=== PATIENT | female | born 1940 | race Caucasian/White ===

== ENCOUNTER 2016-08-21 07:50 | Emergency (ER) | payer MEDICARE, BC ==
[~2016-08-21] VITALS: Ht 167.6 cm; Wt 87.1 kg
[~2016-08-21 07:50] MED LIST: ASPI81CH3 PO; CALC600T34 PO; CHOL1CAP6 PO; CO Q200C3 PO; FIBE625T10 PO; GLUC500C56 PO; HYDR12.56 PO/TUBE; LIPI40TA PO; TAB-TAB PO; TELM1TAB56 PO; TOPR25TA2 PO
[2016-08-21 08:12] VITALS: RESP 16; O2SAT 100
[2016-08-21] MEDS ORDERED: SODIUM CHLORIDE 0.9% FLUSH 5 ML FLUSH IVF PRN (08:15)
[2016-08-21 08:17] VITALS: BP_SYST 172; BP_SYST 179; BP_DIAS 105; BP_DIAS 78; PULSE 63; RESP 16; O2SAT 100
[2016-08-21 08:20] VITALS: BP 172/78; PULSE 57; RESP 16; TEMP 98.1; O2SAT 99
[2016-08-21] MEDS: NITROGLYCERIN 0.4 MG SL 25 TABS/BTL SL SCH ×2 (08:20→08:24)
[2016-08-21 08:21] LABS: AUTOMATED NEUTROPHIL # 3.9 TH/MM3 (1.8-7.7); BASOPHIL # 0.1 TH/MM3 (0-0.2); BASOPHIL % 2.4 % (0.0-2.0); EOSINOPHIL % 0.7 % (0.0-4.0); HEMATOCRIT 41.7 % (35.0-46.0); HEMO FLAGS DIFF FINAL; LYMPH % 24.7 % (9.0-44.0); LYMPHOCYTE # 1.4 TH/MM3 (1.0-4.8); MEAN CELL VOLUME 88.8 FL (80.0-100.0); MEAN CORPUSCULAR HEMOGLOBIN 29.9 PG (27.0-34.0); MEAN CORPUSCULAR HGB CONC 33.6 % (32.0-36.0); MONO % 7.4 % (0.0-8.0); NEUT % 64.8 % (16.0-70.0); PLATELET COUNT 250 TH/MM3 (150-450); RED CELL DISTRIBUTION WIDTH 12.7 % (11.6-17.2); WHITE BLOOD COUNT 5.8 TH/MM3 (4.0-11.0)
[2016-08-21 08:23] LABS: CHLORIDE 100 MEQ/L (98-107); POTASSIUM 3.8 MEQ/L (3.5-5.1); SODIUM (NA) 136 MEQ/L (136-145)
[2016-08-21 08:26] LABS: ANION GAP 9 MEQ/L (5-15); BICARBONATE 26.8 MEQ/L (21.0-32.0)
[2016-08-21 08:27] LABS: BLOOD UREA NITROGEN 10 MG/DL (7-18)
[2016-08-21 08:29] LABS: ALT (GPT) 19 U/L (10-53); APTT (PATIENT) 22.9 SEC (24.3-30.1); INTERNATIONAL NORMALIZED RATIO 0.9 RATIO; PROTHROMBIN TIME - PATIENT 10.4 SEC (9.8-11.6)
[2016-08-21 08:30] LABS: AST (GOT) 16 U/L (15-37); GLOMERULAR FILTRATION RATE 58 ML/MIN (>89)
[2016-08-21 08:31] LABS: TOTAL BILIRUBIN ADULT 0.6 MG/DL (0.2-1.0)
[2016-08-21 08:32] LABS: ALKALINE PHOSPHATASE 104 U/L (45-117)
[2016-08-21] MEDS ORDERED: GLUC1CAP16 PO (08:32)
[2016-08-21] MEDS ORDERED: MULTTAB67 PO (08:32)
[2016-08-21] MEDS ORDERED: ATOR40TA16 PO (08:32)
[2016-08-21] MEDS ORDERED: VITA10003 PO (08:32)
[2016-08-21] MEDS ORDERED: TOPR25TA PO (08:32)
[2016-08-21] MEDS ORDERED: LACTCAP8 PO (08:32)
[2016-08-21] MEDS ORDERED: CALCTAB54 PO (08:32)
[2016-08-21] MEDS ORDERED: MICA80TA2 PO (08:32)
[2016-08-21] MEDS ORDERED: COQ130CA PO (08:32)
[2016-08-21] MEDS ORDERED: ASPI81CH37 CHEW (08:32)
[2016-08-21] MEDS ORDERED: FIBE625T10 PO (08:32)
[2016-08-21] MEDS ORDERED: PREV15CA15 PO (08:32)
--- NOTE | 2016-08-21 08:33 | PD ---
HPI Chief Complaint: Chest Pain Time Seen by Provider: 07:56 Travel History International Travel<30 days: No Contact w/Intl Traveler<30days: No Traveled to known affect area: No History of Present Illness HPI This is a 76-year-old female who presents to the emergency department with chest discomfort described as someone pressing her thumb directly on her breastbone that started last evening and has persisted throughout the night, intermittent, moderate severity associated with shortness of breath. She says this feels very similar to when she had a heart attack back in [address] Palomo placed stent. The associated nausea or diaphoresis. She did take a baby aspirin as well as a Yuriy extra strength aspirin this morning because her arthritis was bothering her. She thinks her last stress test was 3 years ago. PFSH Past Medical History Hx Anticoagulant Therapy: Yes (BABY ASA BID) Arthritis: Yes (OSTEOARTHRITIS) Asthma: No Autoimmune Disease: No Heart Rhythm Problems: Yes (WAS PLACED ON TOPRAL AND RESOLVED) Cancer: No Cardiac Catheterization: Yes (1989 AND 2012 (STENT PLACED)) Cardiovascular Problems: Yes (A. FIB, STENTS, [place], [place]) High Cholesterol: Yes Chest Pain: Yes Congestive Heart Failure: No COPD: No Diabetes: No Diminished Hearing: No Endocrine: No Gastrointestinal Disorders: Yes (acid reflux) GERD: Yes Glaucoma: No Genitourinary: No Hepatitis: No Hiatal Hernia: No Hypertension: Yes Immune Disorder: No Kidney Stones: No Medical other: Yes (GERD/REFLUX, ARTHRITIS) Musculoskeletal: Yes Neurologic: No Psychiatric: No Reproductive: No Respiratory: No Immunizations Current: Yes Myocardial Infarction: Yes Renal Failure: No Sleep Apnea: No Thyroid Disease: No Ulcer: No Tetanus Vaccination: Unknown ?: Not Menopausal: No : 3 Para: 3 Past Surgical History Abdominal Surgery: No AICD: No Arteriovenous Shunt: No Cardiac Surgery: Yes (cardiac stent) Ear Surgery: No Endocrine Surgery: No Eye Surgery: No Genitourinary Surgery: No Gynecologic Surgery: No Insulin Pump: No Joint Replacement: No Neurologic Surgery: No Oral Surgery: Yes (TONSILECTOMY) Pacemaker: No Thoracic Surgery: No Tonsillectomy: Yes Other Surgery: Yes (TONSILLECTOMY, BILATERAL ARTHOSCOPIC SURGERY) Social History Alcohol Use: Yes ("RARE",wine) Tobacco Use: No Substance Use: No Allergies-Medications (Allergen,Severity, Reaction): Coded Allergies: Penicillin (Verified Allergy, Intermediate, hives, 08/21/16) swelling and shortness of breath Reported Meds & Prescriptions Reported Meds & Active Scripts Active Reported Fiber Tabs (Calcium Polycarbophil) 625 Mg Tab 625 Mg PO PRN Calcium 500 (Ytxcwmu-Csjfyadss-Zlbhgue D) 500-250-200 Mg-Mg-Unit Tab 1 Tab PO Vitamin D-3 (Cholecalciferol) 1,000 Unit Tab 1,000 Units PO DAILY Coq10 (Coenzyme Q10 (Ubidecarenone)) 30 Mg Cap 1 Tab PO DAILY Glucosamine Chondroitin (Wbmhkiakjce-Yygzxldvrxr-Ddm C-) 1 Cap Cap 1 Tab PO BID Multiple Vitamin 1 Tab 1 Tab PO DAILY Probiotic (Lactobacillus Acidophilus) 1 Cap Cap 1 Cap PO DAILY Prevacid (Lansoprazole) 15 Mg Capdr 15 Mg PO DAILY Toprol XL (Metoprolol Succinate) 25 Mg Tab 25 Mg PO DAILY Atorvastatin (Atorvastatin Calcium) 40 Mg Tab 40 Mg PO HS Micardis Hct (Telmisartan-Hydrochlorothiazide) 80-12.5 Mg Tab 1 Tab PO DAILY Aspirin Low Dose (Aspirin) 81 Mg Chew 81 Mg CHEW DAILY Review of Systems Except as stated in HPI: all other systems reviewed are Neg Physical Exam Narrative GENERAL:Well appearing, no acute distress SKIN: Warm and dry. HEAD: Atraumatic. Normocephalic. EYES: Pupils equal and round. No injection or drainage. ENT: Moist mucous membranes NECK: Trachea midline. CARDIOVASCULAR: Regular rate and rhythm. No murmur appreciated. RESPIRATORY: Clear to auscultation. Breath sounds equal bilaterally. GASTROINTESTINAL: Abdomen soft, non-tender, nondistended. MUSCULOSKELETAL: No obvious deformities. NEUROLOGICAL: Awake and alert. No obvious cranial nerve deficits. Moving all extremities. PSYCHIATRIC: Appropriate mood and affect; insight and judgment normal. Data Data Last Documented VS Vital Signs Date Time Temp Pulse Resp B/P Pulse Ox O2 Delivery O2 Flow Rate FiO2 08/21/16 09:55 57 16 132/68 97 Nasal Cannula 2 08/21/16 08:20 98.1 Orders Electrocardiogram (08/21/16 08:05) Complete Blood Count With Diff (08/21/16 08:05) Comprehensive Metabolic Panel (08/21/16 08:05) Prothrombin Time / Inr (Pt) (08/21/16 08:05) Act Partial Throm Time (Ptt) (08/21/16 08:05) Troponin I (08/21/16 08:05) Chest, Single Ap (08/21/16 08:05) Ecg Monitoring (08/21/16 08:05) Bilateral Bp Monitoring (08/21/16 08:05) Iv Access Insert/Monitor (08/21/16 08:05) Oximetry (08/21/16 08:05) Oxygen Administration (08/21/16 08:05) Sodium Chloride 0.9% Flush (Ns Flush) (08/21/16 08:15) Nitroglycerin Sl (Nitrostat Sl) (08/21/16 08:15) Troponin I (08/21/16 10:45) Labs Laboratory Tests Test 08/21/16 08:05 White Blood Count 5.8 TH/MM3 Red Blood Count 4.70 MIL/MM3 Hemoglobin 14.0 GM/DL Hematocrit 41.7 % Mean Corpuscular Volume 88.8 FL Mean Corpuscular Hemoglobin 29.9 PG Mean Corpuscular Hemoglobin 33.6 % Concent Red Cell Distribution Width 12.7 % Platelet Count 250 TH/MM3 Mean Platelet Volume 8.7 FL Neutrophils (%) (Auto) 64.8 % Lymphocytes (%) (Auto) 24.7 % Monocytes (%) (Auto) 7.4 % Eosinophils (%) (Auto) 0.7 % Basophils (%) (Auto) 2.4 % Neutrophils # (Auto) 3.9 TH/MM3 Lymphocytes # (Auto) 1.4 TH/MM3 Monocytes # (Auto) 0.4 TH/MM3 Eosinophils # (Auto) 0.0 TH/MM3 Basophils # (Auto) 0.1 TH/MM3 CBC Comment DIFF FINAL Differential Comment Prothrombin Time 10.4 SEC Prothromb Time International 0.9 RATIO Ratio Activated Partial 22.9 SEC Thromboplast Time Sodium Level 136 MEQ/L Potassium Level 3.8 MEQ/L Chloride Level 100 MEQ/L Carbon Dioxide Level 26.8 MEQ/L Anion Gap 9 MEQ/L Blood Urea Nitrogen 10 MG/DL Creatinine 0.93 MG/DL Estimat Glomerular Filtration 58 ML/MIN Rate Random Glucose 100 MG/DL Calcium Level 9.7 MG/DL Total Bilirubin 0.6 MG/DL Aspartate Amino Transf 16 U/L (AST/SGOT) Alanine Aminotransferase 19 U/L (ALT/SGPT) Alkaline Phosphatase 104 U/L Troponin I LESS THAN 0.02 NG/ML Total Protein 7.4 GM/DL Albumin 4.0 GM/DL MDM Medical Decision Making Medical Screen Exam Complete: Yes Emergency Medical Condition: Yes Interpretation(s) Afebrile, hypertensive resolved after nitroglycerin No leukocytosis Electrolytes are reassuring Troponin is normal x2 EKG: Normal sinus rhythm with no ST changes Chest x-ray: No acute process Differential Diagnosis Acute coronary syndrome, pleural effusion, pulmonary embolism, costochondritis, radiculopathy Narrative Course This is a 76-year-old female who presents to the emergency department with chest discomfort in the setting of a history of coronary artery disease. Her last stress test was in July 2015 and was reassuring. She was placed on a monitor and an IV was established. Labs were obtained which were reassuring. EKG is nonischemic. Patient took aspirin prior to arrival. Patient was offered admission but declined. 2 sets of troponin were negative. I think the patient is safe urgent follow-up with Dr. Palomo that she does require stress test and cardiology consultation as soon as possible. Diagnosis Primary Impression: Chest pain Qualified Code: R07.9 - Chest pain, unspecified type Patient Instructions: General Instructions Additional Instructions: If you develop severe chest pain, shortness of breath, sweating, lightheadedness , dizziness or difficulty breathing return to the emergency department immediately. Followup with your hematology technologist without fail as soon as possible. Med/Other Pt SpecificInfo: No Change to Meds Disposition: 01 DISCHARGE HOME Condition: Stable Marge Dodson MD Aug 21, 2016 08:33
--- NOTE | 2016-08-21 08:40 | RADHPO ---
EXAM DATE/TIME: 08/21/2016 08:30 [facility] COMPARISON: CHEST SINGLE AP, August 22, 2015, 18:36. INDICATIONS : Chest pressure. MEDICAL HISTORY : Cardiovascular disease. SURGICAL HISTORY : Coronary artery stent. ENCOUNTER: Initial ACUITY: 2 days PAIN SCORE: 0/10 LOCATION: Bilateral chest FINDINGS: A single view of the chest demonstrates the lungs to be symmetrically aerated without evidence of mas s, infiltrate or effusion. The cardiomediastinal contours are unremarkable. Osseous structures are intact. CONCLUSION: No acute disease. Linden Romo MD on August 21, 2016 at 8:39 Board Certified Radiologist. This report was verified electronically.
[2016-08-21 09:55] VITALS: BP 132/68; PULSE 57; RESP 16; O2SAT 97
[2016-08-21 11:55] VITALS: BP 161/71; PULSE 60; RESP 16; O2SAT 100
[2016-08-21 13:18] VITALS: BP 160/72
--- NOTE | 2016-08-28 14:50 | EKG ---
Date Performed: 08/21/2016 Time Performed: 08:00:00 PTAGE: 76 years EKG: Sinus bradycardia. Low QRS voltages in limb leads Compared to prior tracing no significant change Borderline ECG PREVIOUS TRACING : 08/23/2015 00.36 DOCTOR: Chalino Palomares Interpretating Date/Time 08/28/2016 14:48:09
== END 2016-08-21 13:19 | disposition home or self-care (01) ==
LOC: PHED 07:50
DX: R07.89 Other chest pain (principal); R06.02 Shortness of breath; I25.2 Old myocardial infarction; I10 Essential (primary) hypertension; K21.9 Gastro-esophageal reflux disease without esophagitis
CPT/HCPCS: 71010; 80053; 84484; 85025; 85610; 85730; 93005

== ENCOUNTER 2016-10-11 12:46 | Observation (INO) | payer MEDICARE, BC ==
[2016-10-11] VITALS (8 sets, daily range): BP systolic 154–187; BP diastolic 71–90; PULSE 56–74; RESP 16–20; TEMP 97.3–98.1; O2SAT 96–99
[~2016-10-11] VITALS: Ht 167.6 cm; Wt 82.3 kg
[~2016-10-11 12:46] MED LIST changes: -ASPI81CH3 PO; +ASPI81CH37 CHEW; +ATOR40TA16 PO; -CALC600T34 PO; +CALCTAB54 PO; -CHOL1CAP6 PO; -CO Q200C3 PO; +COQ130CA PO; +GLUC1CAP16 PO; -GLUC500C56 PO; -HYDR12.56 PO/TUBE; +LACTCAP8 PO; -LIPI40TA PO; +MICA80TA2 PO; +MULTTAB67 PO; +PREV15CA15 PO; -TAB-TAB PO; -TELM1TAB56 PO; +TOPR25TA PO; -TOPR25TA2 PO; +VITA10003 PO
[2016-10-11] MEDS ORDERED: SODIUM CHLORIDE 0.9% FLUSH 10 ML FLUSH IVF PRN (13:15)
[2016-10-11 13:31] LABS: AUTOMATED NEUTROPHIL # 4.1 TH/MM3 (1.8-7.7); BASOPHIL # 0.1 TH/MM3 (0-0.2); BASOPHIL % 1.6 % (0.0-2.0); EOSINOPHIL % 0.6 % (0.0-4.0); HEMATOCRIT 41.9 % (35.0-46.0); HEMO FLAGS DIFF FINAL; LYMPH % 19.7 % (9.0-44.0); LYMPHOCYTE # 1.1 TH/MM3 (1.0-4.8); MEAN CELL VOLUME 88.1 FL (80.0-100.0); MEAN CORPUSCULAR HEMOGLOBIN 29.4 PG (27.0-34.0); MEAN CORPUSCULAR HGB CONC 33.3 % (32.0-36.0); MONO % 6.2 % (0.0-8.0); NEUT % 71.9 % (16.0-70.0); PLATELET COUNT 256 TH/MM3 (150-450); RED BLOOD COUNT 4.76 MIL/MM3 (4.00-5.30); RED CELL DISTRIBUTION WIDTH 12.9 % (11.6-17.2); WHITE BLOOD COUNT 5.7 TH/MM3 (4.0-11.0)
[2016-10-11 13:40] LABS: CHLORIDE 100 MEQ/L (98-107); POTASSIUM 3.3 MEQ/L (3.5-5.1); SODIUM (NA) 137 MEQ/L (136-145)
--- NOTE | 2016-10-11 13:41 | RADHPO ---
EXAM DATE/TIME: 10/11/2016 13:09 [facility] COMPARISON: CHEST SINGLE AP, August 21, 2016, 8:30. INDICATIONS : Heart palpatations & hypertension. MEDICAL HISTORY : Hypercholesterolemia. Myocardial infarction. Hypertension. GERD. Osteoarthritis. SURGICAL HISTORY : Tonsillectomy. Cardiac cath with stent placement. Bilateral arthroscopic knee surgeries. ENCOUNTER: Initial ACUITY: 4 - 6 days PAIN SCORE: 0/10 LOCATION: chest FINDINGS: A single view of the chest demonstrates the lungs to be symmetrically aerated without evidence of mas s, infiltrate or effusion. The cardiomediastinal contours are unremarkable. Osseous structures are intact. CONCLUSION: No acute disease. Venkat Templeton MD FACR on October 11, 2016 at 13:39 Board Certified Radiologist. This report was verified electronically.
[2016-10-11 13:43] LABS: ANION GAP 13 MEQ/L (5-15); BICARBONATE 23.8 MEQ/L (21.0-32.0); BLOOD UREA NITROGEN 10 MG/DL (7-18); MAGNESIUM 2.1 MG/DL (1.5-2.5)
[2016-10-11 13:44] LABS: APTT (PATIENT) 24.3 SEC (24.3-30.1); PROTHROMBIN TIME - PATIENT 10.5 SEC (9.8-11.6)
[2016-10-11 13:47] LABS: GLOMERULAR FILTRATION RATE 57 ML/MIN (>89)
[2016-10-11 13:57] LABS: CREATINE KINASE 76 U/L (26-192)
--- NOTE | 2016-10-11 14:03 | PD ---
HPI Chief Complaint: Chest Pain Time Seen by Provider: 13:05 Travel History International Travel<30 days: No Contact w/Intl Traveler<30days: No Traveled to known affect area: No History of Present Illness HPI 76-year-old female came to the emergency room with history of chest discomfort and palpitation for past 3-4 days. Patient says the symptoms have been waxing and waning. She has also been keeping a diary of her blood pressure and it has been running high in the 160s to 180s. Today the pain was radiating to her jaw and that concerned her and she decided to come in and be checked. No history of shortness of breath or diaphoresis. No history of syncopal episode. Pain is in the middle of the chest radiating to her left side into the jaws. Patient was hypertensive in triage. PFSH Past Medical History Narrative Medical List of her past medical, surgical, social and family history was reviewed from the nursing note. Hx Anticoagulant Therapy: No Arthritis: Yes (OSTEOARTHRITIS) Asthma: No Autoimmune Disease: No Heart Rhythm Problems: Yes (WAS PLACED ON TOPRAL AND RESOLVED) Cancer: No Cardiac Catheterization: Yes (1989 AND 2012 (STENT PLACED)) Cardiovascular Problems: Yes (STENT PLACED) High Cholesterol: Yes Chemotherapy: No Chest Pain: Yes Congestive Heart Failure: No COPD: No Cerebrovascular Accident: Yes Diabetes: No Diminished Hearing: No Endocrine: No Gastrointestinal Disorders: Yes (acid reflux) GERD: Yes Glaucoma: No Genitourinary: No Hepatitis: No Hiatal Hernia: No Hypertension: Yes Immune Disorder: No Kidney Stones: No Medical other: Yes (GERD/REFLUX, ARTHRITIS) Musculoskeletal: Yes Neurologic: No Psychiatric: No Reproductive: No Respiratory: No Immunizations Current: Yes Myocardial Infarction: Yes Renal Failure: No Sleep Apnea: No Thyroid Disease: No Ulcer: No Tetanus Vaccination: Unknown Influenza Vaccination: Yes Menopausal: No : 3 Para: 3 Past Surgical History Abdominal Surgery: No AICD: No Arteriovenous Shunt: No Cardiac Surgery: Yes (cardiac stent) Ear Surgery: No Endocrine Surgery: No Eye Surgery: No Genitourinary Surgery: No Gynecologic Surgery: No Hysterectomy: No Insulin Pump: No Joint Replacement: No Neurologic Surgery: No Oral Surgery: Yes (TONSILECTOMY) Pacemaker: No Thoracic Surgery: No Tonsillectomy: Yes Other Surgery: Yes (TONSILLECTOMY, BILATERAL ARTHOSCOPIC SURGERY) Social History Alcohol Use: Yes ("RARE",wine) Tobacco Use: No Substance Use: No Allergies-Medications (Allergen,Severity, Reaction): Coded Allergies: Penicillin (Verified Allergy, Intermediate, hives, 10/11/16) swelling and shortness of breath Comments List of her allergies reviewed from the nursing note Reported Meds & Prescriptions Reported Meds & Active Scripts Active Reported Fiber Tabs (Calcium Polycarbophil) 625 Mg Tab 625 Mg PO BID PRN Calcium 500 (Hitbkac-Whlexrpwp-Bzbhnju D) 500-250-200 Mg-Mg-Unit Tab 1 Tab PO DAILY NEB Vitamin D-3 (Cholecalciferol) 1,000 Unit Tab 1,000 Units PO DAILY Coq10 (Coenzyme Q10 (Ubidecarenone)) 30 Mg Cap 1 Tab PO DAILY Glucosamine Chondroitin (Nazkfxthute-Ojkhubiuplh-Bqb C-) 1 Cap Cap 1 Tab PO BID Multiple Vitamin 1 Tab 1 Tab PO DAILY Probiotic (Lactobacillus Acidophilus) 1 Cap Cap 1 Cap PO DAILY Prevacid (Lansoprazole) 15 Mg Capdr 15 Mg PO DAILY Atorvastatin (Atorvastatin Calcium) 40 Mg Tab 40 Mg PO HS Micardis Hct (Telmisartan-Hydrochlorothiazide) 80-12.5 Mg Tab 1 Tab PO DAILY Aspirin Low Dose (Aspirin) 81 Mg Chew 81 Mg CHEW BID Narrative Medication List of home medications reviewed from the nursing note Review of Systems Except as stated in HPI: all other systems reviewed are Neg Physical Exam Narrative GENERAL: Awake, alert, elderly, mild distress SKIN: Focused skin assessment warm/dry. HEAD: Atraumatic. Normocephalic. EYES: Pupils equal and round. No scleral icterus. No injection or drainage. ENT: No nasal bleeding or discharge. Mucous membranes pink and moist. NECK: Trachea midline. No JVD. CARDIOVASCULAR: Regular rate and rhythm. No murmur appreciated. RESPIRATORY: No accessory muscle use. Clear to auscultation. Breath sounds equal bilaterally. GASTROINTESTINAL: Abdomen soft, non-tender, nondistended. Hepatic and splenic margins not palpable. MUSCULOSKELETAL: No obvious deformities. No clubbing. No cyanosis. No edema. NEUROLOGICAL: Awake and alert. No obvious cranial nerve deficits. Motor grossly within normal limits. Normal speech. PSYCHIATRIC: Appropriate mood and affect; insight and judgment normal. Data Data Last Documented VS Orders Electrocardiogram (10/11/16 13:05) Basic Metabolic Panel (Bmp) (10/11/16 13:05) Ckmb (Isoenzyme) Profile (10/11/16 13:05) Complete Blood Count With Diff (10/11/16 13:05) Magnesium (Mg) (10/11/16 13:05) Prothrombin Time / Inr (Pt) (10/11/16 13:05) Act Partial Throm Time (Ptt) (10/11/16 13:05) Troponin I (10/11/16 13:05) Chest, Single Ap (10/11/16 13:05) Ecg Monitoring (10/11/16 13:05) Bilateral Bp Monitoring (10/11/16 13:05) Iv Access Insert/Monitor (10/11/16 13:05) Oximetry (10/11/16 13:05) Oxygen Administration (10/11/16 13:05) Sodium Chloride 0.9% Flush (Ns Flush) (10/11/16 13:15) Thyroid Stimulating Hormone (10/11/16 13:05) Potassium Chloride Eff (K-Lyte Cl Eff) (10/11/16 14:15) Vital Signs (Adult) Q4H (10/11/16 14:26) Sodium Chloride 0.9% Flush (Ns Flush) (10/11/16 14:30) Sodium Chloride 0.9% Flush (Ns Flush) (10/11/16 21:00) Naloxone Inj (Narcan Inj) (10/11/16 14:30) Aspirin Chew (Aspirin Chew) (10/11/16 21:00) Atorvastatin (Lipitor) (10/11/16 21:00) Calcium Polycarbophil (Fiber Con) (10/11/16 14:30) Lactobacillus Acidophilus (Lactinex) (10/12/16 09:00) Metoprolol Succinate Er (Toprol Xl) (10/11/16 21:00) Calcium-Vit D 250-125 Mg (Oscal-D 250-12 (10/12/16 09:00) Cholecalciferol (Vitamin D3) (10/12/16 09:00) Pantoprazole (Protonix) (10/12/16 09:00) Multivitamin (Theragran) (10/12/16 09:00) Losartan (Cozaar) (10/12/16 09:00) Potassium Chloride (Kcl) (10/11/16 21:00) Consult Cardiology (10/11/16 ) Admit Order (Ed Use Only) (10/11/16 14:37) Labs MDM Medical Decision Making Medical Screen Exam Complete: Yes Emergency Medical Condition: Yes Medical Record Reviewed: Yes Interpretation(s) Twelve-lead EKG was reviewed by me. Normal sinus rhythm, normal axis, multiple PACs, nonspecific ST-T wave changes. Heart rate of 83 bpm. Differential Diagnosis ACS, non-STEMI, electrolyte abnormality Narrative Course 2:18 p.m. blood test results of back and patient has mild hypokalemia and I have replaced that. I went back and reassessed her and she says that her palpitation feels little better. Her blood pressure is in 150s right now. However I would like to observe her for at least 24 hours and repeat the troponins. Awaiting for the hospitalist call back. Procedures EKG Prior to Arrival: Yes Diagnosis Primary Impression: Chest pain Qualified Code: R07.9 - Chest pain, unspecified type Additional Impression: Palpitation Admitting Information Admitting Physician Requests: Observation Scripts Metoprolol Tartrate 25 Mg Tab25 Mg PO BID #60 TAB Ref 0 Prov:José Miguel Nguyen MD 10/12/16 Marcellus Liu MD Oct 11, 2016 14:03 Mean Corpuscular Hemoglobin 33.3 % Concent Red Cell Distribution Width 12.9 % Platelet Count 256 TH/MM3 Mean Platelet Volume 9.2 FL Neutrophils (%) (Auto) 71.9 % Lymphocytes (%) (Auto) 19.7 % Monocytes (%) (Auto) 6.2 % Eosinophils (%) (Auto) 0.6 % Basophils (%) (Auto) 1.6 % Neutrophils # (Auto) 4.1 TH/MM3 Lymphocytes # (Auto) 1.1 TH/MM3 Monocytes # (Auto) 0.4 TH/MM3 Eosinophils # (Auto) 0.0 TH/MM3 Basophils # (Auto) 0.1 TH/MM3 CBC Comment DIFF FINAL Differential Comment Prothrombin Time 10.5 SEC Prothromb Time International 1.0 RATIO Ratio Activated Partial 24.3 SEC Thromboplast Time Sodium Level 137 MEQ/L Potassium Level 3.3 MEQ/L Chloride Level 100 MEQ/L Carbon Dioxide Level 23.8 MEQ/L Anion Gap 13 MEQ/L Blood Urea Nitrogen 10 MG/DL Creatinine 0.95 MG/DL Estimat Glomerular Filtration 57 ML/MIN Rate Random Glucose 126 MG/DL Calcium Level 9.3 MG/DL Magnesium Level 2.1 MG/DL Total Creatine Kinase 76 U/L Troponin I LESS THAN 0.02 NG/ML Thyroid Stimulating Hormone 3.230 uIU/ML 3rd Gen [facility] Medical Decision Making Medical Screen Exam Complete: Yes Emergency Medical Condition: Yes Medical Record Reviewed: Yes Interpretation(s) Twelve-lead EKG was reviewed by me. Normal sinus rhythm, normal axis, multiple PACs, nonspecific ST-T wave changes. Heart rate of 83 bpm. Differential Diagnosis ACS, non-STEMI, electrolyte abnormality Narrative Course 2:18 p.m. blood test results of back and patient has mild hypokalemia and I have replaced that. I went back and reassessed her and she says that her palpitation feels little better. Her blood pressure is in 150s right now. However I would like to observe her for at least 24 hours and repeat the troponins. Awaiting for the hospitalist call back. Procedures EKG Prior to Arrival: Yes Diagnosis Primary Impression: Chest pain Qualified Code: R07.9 - Chest pain, unspecified type Additional Impression: Palpitation Admitting Information Admitting Physician Requests: Observation Marcellus Liu MD Oct 11, 2016 14:03
[2016-10-11] MEDS ORDERED: POTASSIUM CHLORIDE 25 MEQ EFFERVESCENT TAB NG SCH (14:15)
[2016-10-11] MEDS ORDERED: SODIUM CHLORIDE 0.9% FLUSH 10 ML FLUSH IV FLUSH PRN (14:30)
[2016-10-11] MEDS ORDERED: NALOXONE HCL 0.4 MG/ML AMP IV PRN (14:30)
[2016-10-11] MEDS ORDERED: CALCIUM POLYCARBOPHIL 625 MG TAB PO PRN (14:30)
[2016-10-11] MEDS ORDERED: POTASSIUM CHLORIDE 25 MEQ EFFERVESCENT TAB PO ONE (14:45)
[2016-10-11] MEDS: ASPIRIN 81 MG CHEW TAB CHEW SCH (20:12)
[2016-10-11] MEDS: SODIUM CHLORIDE 0.9% FLUSH 10 ML FLUSH IV FLUSH SCH (20:12)
[2016-10-11] MEDS: POTASSIUM CHLORIDE 20 MEQ CONTROLLED RELEASE TAB PO SCH (20:12)
--- NOTE | 2016-10-11 20:17 | MB ---
cc: LOGAN SOLIZ MD DATE OF : 1940 DATE OF CONSULTATION: 10/11/2016 REASON FOR CONSULTATION: Palpitation, elevated blood pressure, atypical chest pain. HISTORY OF PRESENT ILLNESS 76-year-old female followed by my partner, Dr. Roman Palomo, with past medical history significant for coronary artery disease status post PCI in the setting of a non ST-elevation PA in 2014, hypertension, hyperlipidemia, GERD, who presented to the emergency department for evaluation of palpitations, and elevated blood pressure. The patient reports that for the last two days she has been having this episode of palpitations and "heart pounding," that she felt in her neck and her jaw. She also was more concerned with her blood pressure which was in the 190 systolic for which she drove herself to the emergency department for evaluation. She denies fever, chills, nausea, vomiting, diarrhea , presyncope, syncope, edema and lightheadedness. She is noncompliant with medications, chest trauma, or bleeding issues. In the emergency department EKG was unremarkable. She was found with a low potassium. Potassium was replaced and first set of cardiac enzymes are negative with a value of less than 0.02 and her blood pressure was controlled with medication. Cardiology has been consulted for further management and evaluation. She reports feeling well. She denies any chest pain, palpitations, shortness of breath. She is comfortable in her bed. REVIEW OF SYSTEMS: Negative except for what is mentioned in the HPI. PAST MEDICAL HISTORY 1. Hypertension 2. Hyperlipidemia 3. CAD status post cardiac stent 4. Gastroesophageal reflux disease ALLERGIES: PENICILLIN SOCIAL HISTORY: Rarely drinks alcohol. She denies tobacco or illicit drug use. FAMILY HISTORY: Noncontributory. CARDIAC HOME MEDICATIONS: 1. Toprol XL 25 milligrams p.o. q hs. 2. Lipitor 40 milligrams p.o. q hs. 3. Aspirin 81 milligrams p.o. daily. 4. Micardis HCT 80/12.5 mg p.o. daily PHYSICAL EXAMINATION Vital signs: Temperature 98, pulse 64, respiratory rate 16, blood pressure 187/83 on arrival and now is down to 156/71. O2 sat is 98% on room air. General: She is awake, alert, oriented x3 in no acute distress. Neck: No JVD, no carotid bruits. Heart: Regular rate and rhythm. No murmurs, rubs or gallops. Lungs: Clear to auscultation bilaterally. No wheezes, no rhonchi, no rales. Abdomen: Obese. Positive bowel sounds, soft, nontender, nondistended. Extremities: No cyanosis or edema. Pulses throughout. DATA CBC: hemoglobin 14, hematocrit 41, platelet count 256, INR 1, Chemistries: sodium 137, potassium 3.3, BUN 10, creatinine 0.95, First set of troponin less than 0.02. X-RAYS Chest x-ray, no acute cardiopulmonary process. She has a myocardial perfusion scan done on 08/23/2015 which is unremarkable. She has another MPI done 08/18/2014 which shows no definite reversible perfusion defects, low probability. EKG: sinus rhythm with PAC nonspecific ST changes. ASSESSMENT/PLAN 76-year-old female with known coronary artery disease that presents with complaints of palpitations and atypical chest discomfort. He has been found with low potassium, cardiac enzymes so far are negative. Agree with an admission to the hospital for observation. The patient should be ruled out of PA by cardiac markers. Monitor telemetry, and the blood pressure medications should be optimized while inpatient. If she remains asymptomatic and cardiac markers are negative, she should be able to be discharged tomorrow with follow up with Dr. Palomo on an outpatient basis. Thank you for the opportunity to take part in the care of this patient. Will be available on a p.r.n. basis for any other questions or concerns. MD CHIVO Nowak/SHREYA /4:43 PM /7:27 PM CHASITY
[2016-10-11] MEDS ORDERED: ATORVASTATIN 40 MG TAB PO SCH (21:00)
[2016-10-11] MEDS ORDERED: METOPROLOL SUCCINATE 25 MG EXTENDED RELEASE TAB PO SCH (21:00)
[2016-10-11] MEDS ORDERED: GLUCOSAMINE CHONDROITIN VIT C PO SCH (21:00)
[2016-10-11] MEDS ORDERED: LORazepam 0.5 MG TAB PO PRN (22:30)
[2016-10-11] MEDS ORDERED: cloNIDine HCL 0.1 MG TAB PO PRN (22:30)
[2016-10-12] VITALS: BP 152/88; PULSE 63; RESP 20; TEMP 97.8; O2SAT 98
[2016-10-12 04:00] VITALS: BP 142/90; PULSE 61; RESP 20; TEMP 97.7; O2SAT 98
[2016-10-12] MEDS ORDERED: METO25TA3 PO (08:34)
[2016-10-12] MEDS: POTASSIUM CHLORIDE 20 MEQ CONTROLLED RELEASE TAB PO SCH (08:49)
[2016-10-12] MEDS: ASPIRIN 81 MG CHEW TAB CHEW SCH (08:49)
[2016-10-12] MEDS: SODIUM CHLORIDE 0.9% FLUSH 10 ML FLUSH IV FLUSH SCH (08:52)
[2016-10-12 08:57] VITALS: BP 171/89; PULSE 57; RESP 15; TEMP 96.4; O2SAT 98
[2016-10-12] MEDS ORDERED: MULTIVITAMIN TAB PO SCH (09:00)
[2016-10-12] MEDS ORDERED: LACTOBACILLUS ACIDOPHILUS TAB PO SCH (09:00)
[2016-10-12] MEDS ORDERED: COENZYME Q10 PO SCH (09:00)
[2016-10-12] MEDS ORDERED: CALCIUM/VITAMIN D 250 MG/125 U TAB PO SCH (09:00)
[2016-10-12] MEDS ORDERED: PANTOPRAZOLE SOD 20 MG DELAYED RELEASE TAB PO SCH (09:00)
[2016-10-12] MEDS ORDERED: LOSARTAN 50 MG TAB PO SCH (09:00)
[2016-10-12] MEDS ORDERED: CHOLECALCIFEROL (VIT D3) 1000 UNIT TAB PO SCH (09:00)
[2016-10-12] MEDS ORDERED: HYDROCHLOROTHIAZIDE 12.5 MG CAP PO SCH (09:00)
--- NOTE | 2016-10-12 09:11 | MH ---
cc: JOSÉ MIGUEL OCX MD DATE OF ADMISSION: 10/11/2016 CHIEF COMPLAINT Chest discomfort and palpitation. HISTORY OF PRESENT ILLNESS This is a 76-year-old very pleasant female with past medical-surgical history significant for osteoarthritis, history of coronary artery disease status post stent placement in 1989 and 2012, hyperlipidemia, history of acid reflux, history of tonsillectomy, bilateral arthroscopic knee surgery, who came to the ER at [facility] complaining of chest discomfort and palpitation for the last 3-4 days. The patient said this symptom has been waxing and waning and has been keeping a diary of her blood pressure and it has been running high in 160s and 180s. The patient had discomfort in the chest yesterday which radiated to the jaw, which concerned her to come to the [facility]. The patient denies any shortness of breath, any diaphoresis, any syncopal episode and her chest discomfort is almost resolved. Cardiology Dr. An has seen the patient. The patient has low potassium, cardiac enzymes was negative and no cardiac workup planned by Dr. An and wants to discharge if the patient remained stable. Other than that nothing significant. PAST MEDICAL HISTORY Past medical-surgical history as dictated above. SOCIAL HISTORY She drinks alcohol rarely. Denies any drug abuse. Does not smoke. She lives at home alone. 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 FAMILY HISTORY Significant for coronary artery disease. ALLERGIES PENICILLIN. MEDICATIONS Include: 1. Calcium, magnesium with vitamin D 500/250/200 p.o. daily. 2. Calcium polycarbophil 625 mg twice a day. 3. Vitamin D3 1000 units p.o. daily. 4. Co-Q10 30 mg p.o. daily. 5. Glucosamine chondroitin sulfate one p.o. b.i.d. 6. Multivitamin p.o. daily. 7. Probiotic one capsule p.o. daily. 8. Prevacid 15 mg p.o. daily. 9. Toprol XL 25 mg p.o. at bedtime. 10. Lipitor 40 mg p.o. at bedtime. 11. Micardis 80/12.5 mg p.o. daily. 12. Aspirin 81 mg p.o. daily. REVIEW OF SYSTEMS All review of systems are negative at the time of examination. The patient denies any symptom or complaint. PHYSICAL EXAMINATION GENERAL: This is a 76-year-old female laying on the bed, not in acute distress. VITAL SIGNS: Temperature 97.7, heart rate 61, respiration 20, blood pressure 142/90, O2 saturation 98% on room air. HEENT: Normocephalic, atraumatic. EOMI. PERRL. Oral mucosa moist. NECK: Supple. No visible thyromegaly or neck mass. Trachea central. CVS: Regular rate and rhythm. RESPIRATIONS: Clear to auscultation bilaterally. ABDOMEN: Soft, nontender. Bowel sounds audible. EXTREMITIES: No cyanosis, no clubbing. Full range of motion of all extremities. NEURO: Awake, alert, oriented x4. No focal deficits. SKIN: Warm and dry. PSYCHE: The patient is cooperative. Mood and affect is normal. LABORATORY DATA Include CBC is totally unremarkable. BMP totally unremarkable except potassium 3.3 low, GFR 57 low, glucose 126 high. Cardiac enzyme troponin-I 0.02. TSH 3.230. PT 10.5, INR 1.0, PT 24.3. IMAGING STUDIES Chest x-ray was done and shows no acute disease. ASSESSMENT/PLAN This is a 76-year-old female who came to the ER diagnosed with chest pressure and discomfort which is almost resolved and palpitation which is almost resolved. Cardiology seen the patient and okay to discharge per cardiology. No further recommendation as inpatient. The patient needs to see Dr. 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 Further details in the medical record. José Miguel Cox MD EA/KORIN /8:29 AM /8:45 AM
[2016-10-12 10:03] LABS: POTASSIUM 3.9 MEQ/L (3.5-5.1)
[2016-10-12 10:06] LABS: BICARBONATE 25.9 MEQ/L (21.0-32.0)
--- NOTE | 2016-10-12 12:30 | EKG ---
Date Performed: 10/11/2016 Time Performed: 12:50:44 PTAGE: 76 years EKG: Sinus rhythm with PAC(s) ST junctional depression is nonspecific Borderline ECG Compared to prior tracing no sign ificant change PREVIOUS TRACING : 08/21/2016 08.00 DOCTOR: Chalino Palomares Interpretating Date/Time 10/12/2016 12:28:43
== END 2016-10-12 10:35 | disposition home or self-care (01) ==
LOC: PHED 12:46 → PHEDA 14:38 → PH3A 16:57
PROVIDERS: ADMIT Family Medicine; ATTEND Family Medicine
DX: R07.9 Chest pain, unspecified (principal); R00.2 Palpitations; I10 Essential (primary) hypertension; M19.90 Unspecified osteoarthritis, unspecified site; E78.00 Pure hypercholesterolemia, unspecified; Z86.73 Personal history of transient ischemic attack (TIA), and cerebral infarction without residual deficits; K21.9 Gastro-esophageal reflux disease without esophagitis; I25.2 Old myocardial infarction; Z79.899 Other long term (current) drug therapy; E87.6 Hypokalemia; Z91.14 Patient's other noncompliance with medication regimen; E78.5 Hyperlipidemia, unspecified; Z95.5 Presence of coronary angioplasty implant and graft; I25.10 Atherosclerotic heart disease of native coronary artery without angina pectoris
CPT/HCPCS: 71010; 80048; 82550; 83735; 84443; 84484; 85025; 85610; 85730; 93005; 99285; G0378

== ENCOUNTER → 2016-10-31 | Outpatient (CLI) | payer MEDICARE, BC ==
[~2016-10-31] MED LIST changes: +METO25TA3 PO; -TOPR25TA PO
[2016-10-31 13:33] LABS: ANION GAP 10 MEQ/L (5-15); AST (GOT) 24 U/L (15-37); BICARBONATE 25.9 MEQ/L (21.0-32.0); BLOOD UREA NITROGEN 16 MG/DL (7-18); CHLORIDE 103 MEQ/L (98-107); GLOMERULAR FILTRATION RATE 61 ML/MIN (>89); POTASSIUM 4.2 MEQ/L (3.5-5.1); SODIUM (NA) 139 MEQ/L (136-145)
[2016-10-31 13:35] LABS: ALKALINE PHOSPHATASE 94 U/L (45-117); ALT (GPT) 19 U/L (10-53); TOTAL BILIRUBIN ADULT 0.7 MG/DL (0.2-1.0)
== END ==
LOC: PLAB 10:23
PROVIDERS: ATTEND Family Medicine
DX: E78.6 Lipoprotein deficiency (principal)
CPT/HCPCS: 36415; 80053

== ENCOUNTER → 2017-01-05 | Outpatient (CLI) | payer MEDICARE, BC ==
[2017-01-05 13:51] LABS: ALT (GPT) 17 U/L (10-53); ANION GAP 6 MEQ/L (5-15); AST (GOT) 17 U/L (15-37); BICARBONATE 29.4 MEQ/L (21.0-32.0); BLOOD UREA NITROGEN 12 MG/DL (7-18); CHLORIDE 105 MEQ/L (98-107); GLOMERULAR FILTRATION RATE 64 ML/MIN (>89); GLUCOSE,FASTING 79 MG/DL (74-99); POTASSIUM 4.6 MEQ/L (3.5-5.1); SODIUM (NA) 140 MEQ/L (136-145)
[2017-01-05 13:54] LABS: ALKALINE PHOSPHATASE 98 U/L (45-117); TOTAL BILIRUBIN ADULT 0.5 MG/DL (0.2-1.0)
== END ==
LOC: PLAB 08:22
PROVIDERS: ATTEND Family Medicine
DX: E87.6 Hypokalemia (principal)
CPT/HCPCS: 36415; 80053

== ENCOUNTER → 2017-05-04 | Outpatient (CLI) | payer MEDICARE, BC ==
[~2017-05-04] MED LIST changes: -ASPI81CH37 CHEW; +ASPI81CH6 CHEW; -PREV15CA15 PO; +PREV15CA20 PO
[2017-05-04 14:00] LABS: ALT (GPT) 21 U/L (10-53); ANION GAP 6 MEQ/L (5-15); AST (GOT) 22 U/L (15-37); BICARBONATE 29.7 MEQ/L (21.0-32.0); BLOOD UREA NITROGEN 17 MG/DL (7-18); CHLORIDE 103 MEQ/L (98-107); GLOMERULAR FILTRATION RATE 62 ML/MIN (>89); GLUCOSE,FASTING 91 MG/DL (74-99); POTASSIUM 4.6 MEQ/L (3.5-5.1); SODIUM (NA) 139 MEQ/L (136-145)
[2017-05-04 14:03] LABS: ALKALINE PHOSPHATASE 110 U/L (45-117); TOTAL BILIRUBIN ADULT 0.6 MG/DL (0.2-1.0)
== END ==
LOC: PLAB 10:40
PROVIDERS: ATTEND Family Medicine
DX: E87.6 Hypokalemia (principal); E55.9 Vitamin D deficiency, unspecified
CPT/HCPCS: 36415; 80053; 82306

== ENCOUNTER → 2017-07-09 | Outpatient (CLI) | payer MEDICARE, BC ==
[2017-07-09 10:15] LABS: ALBUMIN 3.7 GM/DL (3.4-5.0); AST (GOT) 18 U/L (15-37); BICARBONATE 28.2 MEQ/L (21.0-32.0); BLOOD UREA NITROGEN 11 MG/DL (7-18); CALCIUM 9.3 MG/DL (8.5-10.1); CHLORIDE 101 MEQ/L (98-107); CREATININE 0.84 MG/DL (0.50-1.00); GLOMERULAR FILTRATION RATE 66 ML/MIN (>89); GLUCOSE,FASTING 88 MG/DL (74-99); SODIUM (NA) 137 MEQ/L (136-145)
[2017-07-09 10:17] LABS: ALT (GPT) 18 U/L (10-53); CHOLESTEROL 172 MG/DL (120-200)
[2017-07-09 10:19] LABS: ALKALINE PHOSPHATASE 96 U/L (45-117); CHOLESTEROL/ HDL RATIO 2.58 RATIO; HDL CHOLESTEROL 66.5 MG/DL (40.0-60.0); LDL CHOLESTEROL 80 MG/DL (0-99); TOTAL BILIRUBIN ADULT 0.5 MG/DL (0.2-1.0); TRIGLYCERIDES 126 MG/DL (42-150)
== END ==
LOC: PLAB 07:41
PROVIDERS: ATTEND Internal Medicine Interventional Cardiology
DX: E78.5 Hyperlipidemia, unspecified (principal); I25.10 Atherosclerotic heart disease of native coronary artery without angina pectoris; R94.31 Abnormal electrocardiogram [ECG] [EKG]
CPT/HCPCS: 36415; 80053; 80061

== ENCOUNTER 2017-08-02 15:35 | Observation (INO) | payer MEDICARE, BC ==
[2017-08-02] VITALS (7 sets, daily range): BP systolic 133–157; BP diastolic 71–78; PULSE 64–68; RESP 16–18; TEMP 96.2–98; O2SAT 94–100
[~2017-08-02] VITALS: Ht 167.6 cm; Wt 84.2 kg
[2017-08-02] MEDS ORDERED: SODIUM CHLORIDE 0.9% FLUSH 10 ML FLUSH IVF PRN (16:00)
[2017-08-02] MEDS ORDERED: ASPIRIN 81 MG CHEW TAB PO ONE (16:00)
--- NOTE | 2017-08-02 16:04 | PD ---
HPI Chief Complaint: Chest Pain Time Seen by Provider: 15:54 Travel History International Travel<30 days: No Contact w/Intl Traveler<30days: No Traveled to known affect area: No History of Present Illness HPI 77-year-old female with history of CAD, cardiac stent, hypertension, hyperlipidemia, here for evaluation of chest pain. The patient reports that the pain started 2 days ago and is substernal in nature, described as pressure, radiates up into her neck. There are no modifying factors. Symptoms seem to been worsening today. Initially she thought that the pain was from her arthritis. While at lunch today she developed palpitations and slight dyspnea. She took a sublingual nitroglycerin. Currently her pain is 1 out of 10. No paresthesias or motor deficits. No fevers, chills, cough, or recent illness. Her wheel shop supervisor is Dr. Palomo. She took 81mg ASA today. PFSH Past Medical History Hx Anticoagulant Therapy: No Arthritis: Yes Asthma: No Autoimmune Disease: No Heart Rhythm Problems: No Cancer: No Cardiac Catheterization: Yes (1989 AND 2012 (STENT PLACED)) Cardiovascular Problems: Yes High Cholesterol: Yes Chemotherapy: No Chest Pain: Yes Congestive Heart Failure: No COPD: No Cerebrovascular Accident: No Diabetes: No Diminished Hearing: No Endocrine: No Gastrointestinal Disorders: Yes (acid reflux) GERD: No Glaucoma: No Genitourinary: No Hepatitis: No Hiatal Hernia: No Hypertension: Yes Immune Disorder: No Kidney Stones: No Musculoskeletal: Yes Neurologic: No Psychiatric: No Reproductive: No Respiratory: No Immunizations Current: Yes Migraines: No Myocardial Infarction: Yes Renal Failure: No Seizures: No Sleep Apnea: No Thyroid Disease: No Ulcer: No Menopausal: No : 3 Para: 3 Past Surgical History Abdominal Surgery: No AICD: No Arteriovenous Shunt: No Ear Surgery: No Endocrine Surgery: No Eye Surgery: No Genitourinary Surgery: No Gynecologic Surgery: No Hysterectomy: No Insulin Pump: No Joint Replacement: No Neurologic Surgery: No Oral Surgery: Yes (TONSILECTOMY) Pacemaker: No Thoracic Surgery: No Tonsillectomy: Yes Other Surgery: Yes (TONSILLECTOMY, BILATERAL ARTHOSCOPIC SURGERY) Social History Alcohol Use: Yes ("RARE",wine) Tobacco Use: No Substance Use: No Allergies-Medications (Allergen,Severity, Reaction): Coded Allergies: penicillin G (Unverified Allergy, Intermediate, hives, 02/06/17) swelling and shortness of breath Reported Meds & Prescriptions Reported Meds & Active Scripts Active Metoprolol Tartrate 25 Mg Tab 25 Mg PO BID Reported Calcium 600 with Vitamin D (Calcium Carbonate-Cholecalciferol) 600-400 mg-Unit Tab 1 Tab PO DAILY Repatha PF Inj (Evolocumab PF Inj) 140 Mg/Ml Syr Fiber Tabs (Calcium Polycarbophil) 625 Mg Tab 625 Mg PO BID PRN Coq10 (Coenzyme Q10 (Ubidecarenone)) 30 Mg Cap 1 Tab PO DAILY Glucosamine Chondroitin (Xcatkpnyixy-Hrhtrcpdblo-Erw C-) 1 Cap Cap 1 Tab PO BID Multiple Vitamin 1 Tab 1 Tab PO DAILY Prevacid (Lansoprazole) 15 Mg Capdr 15 Mg PO DAILY Atorvastatin (Atorvastatin Calcium) 40 Mg Tab 40 Mg PO HS Micardis Hct (Telmisartan-Hydrochlorothiazide) 80-12.5 Mg Tab 1 Tab PO DAILY Aspirin Low Dose (Aspirin) 81 Mg Chew 81 Mg CHEW BID Review of Systems Except as stated in HPI: all other systems reviewed are Neg Physical Exam Narrative GENERAL: Well-developed, well-nourished, comfortable, no apparent distress. SKIN: Focused skin assessment warm/dry. HEAD: Atraumatic. Normocephalic. EYES: Pupils equal and round. No scleral icterus. No injection or drainage. ENT: Mucous membranes pink and moist. NECK: Trachea midline. No JVD. CARDIOVASCULAR: Regular rate and rhythm. Distal pulses brisk and equal bilaterally. RESPIRATORY: No accessory muscle use. Clear to auscultation. Breath sounds equal bilaterally. GASTROINTESTINAL: Abdomen soft, non-tender, nondistended. MUSCULOSKELETAL: No obvious deformities. No clubbing. No cyanosis. No edema. NEUROLOGICAL: Awake and alert. No obvious cranial nerve deficits. Motor grossly within normal limits. Normal speech. PSYCHIATRIC: Appropriate mood and affect; insight and judgment normal. Data Data Last Documented VS Vital Signs Date Time Temp Pulse Resp B/P (MAP) Pulse Ox O2 Delivery O2 Flow Rate FiO2 08/02/17 16:52 64 18 133/75 (94) 98 Room Air 08/02/17 15:50 98.0 Orders Orders Electrocardiogram (08/02/17 15:59) Ckmb (Isoenzyme) Profile (08/02/17 15:59) Complete Blood Count With Diff (08/02/17 15:59) Comprehensive Metabolic Panel (08/02/17 15:59) Magnesium (Mg) (08/02/17 15:59) Prothrombin Time / Inr (Pt) (08/02/17 15:59) Act Partial Throm Time (Ptt) (08/02/17 15:59) Troponin I (08/02/17 15:59) Lipase (08/02/17 15:59) Chest, Single Ap (08/02/17 15:59) Ecg Monitoring (08/02/17 15:59) Iv Access Insert/Monitor (08/02/17 15:59) Oximetry (08/02/17 15:59) Aspirin Chew (Aspirin Chew) (08/02/17 16:00) Sodium Chloride 0.9% Flush (Ns Flush) (08/02/17 16:00) Labs Laboratory Tests Test 08/02/17 16:10 White Blood Count 5.7 TH/MM3 Red Blood Count 4.59 MIL/MM3 Hemoglobin 13.5 GM/DL Hematocrit 40.6 % Mean Corpuscular Volume 88.6 FL Mean Corpuscular Hemoglobin 29.4 PG Mean Corpuscular Hemoglobin Concent 33.2 % Red Cell Distribution Width 13.6 % Platelet Count 247 TH/MM3 Mean Platelet Volume 9.0 FL Neutrophils (%) (Auto) 66.5 % Lymphocytes (%) (Auto) 23.9 % Monocytes (%) (Auto) 7.5 % Eosinophils (%) (Auto) 0.7 % Basophils (%) (Auto) 1.4 % Neutrophils # (Auto) 3.8 TH/MM3 Lymphocytes # (Auto) 1.4 TH/MM3 Monocytes # (Auto) 0.4 TH/MM3 Eosinophils # (Auto) 0.0 TH/MM3 Basophils # (Auto) 0.1 TH/MM3 CBC Comment DIFF FINAL Differential Comment Prothrombin Time 10.2 SEC Prothromb Time International Ratio 1.0 RATIO Activated Partial Thromboplast Time 21.1 SEC Blood Urea Nitrogen 13 MG/DL Creatinine 0.82 MG/DL Random Glucose 105 MG/DL Total Protein 7.3 GM/DL Albumin 3.7 GM/DL Calcium Level 9.3 MG/DL Magnesium Level 2.2 MG/DL Alkaline Phosphatase 95 U/L Aspartate Amino Transf (AST/SGOT) 25 U/L Alanine Aminotransferase (ALT/SGPT) 18 U/L Total Bilirubin 0.4 MG/DL Sodium Level 134 MEQ/L Potassium Level 3.5 MEQ/L Chloride Level 102 MEQ/L Carbon Dioxide Level 24.1 MEQ/L Anion Gap 8 MEQ/L Estimat Glomerular Filtration Rate 67 ML/MIN Total Creatine Kinase 83 U/L Troponin I LESS THAN 0.02 NG/ML Lipase 252 U/L MDM Medical Decision Making Medical Screen Exam Complete: Yes Emergency Medical Condition: Yes Medical Record Reviewed: Yes Interpretation(s) EKG: Sinus, rate 65, normal axis, normal intervals, no acute ischemic abnormality. Differential Diagnosis ACS, pneumothorax, pericarditis, PE, pneumonia, musculoskeletal pain Narrative Course Shortly after the patient arrived to the emergency department I discussed the case with the patient's wheel shop supervisor Dr. Palomo. Plan is to perform cardiac workup in the emergency department, and if unremarkable, the patient will be admitted to the chest pain center for further evaluation and likely nuclear stress test. Vital signs reviewed. CBC is unremarkable. CMP is unremarkable. Lipase is 252. Cardiac enzymes are negative. Chest x-ray interpreted by me shows no infiltrate, no pneumothorax, no free air. The patient was made aware of all findings. She is resting comfortably. She is amenable with plan for admission to the chest pain center for further cardiac evaluation. Case discussed with hospitalist Dr. Gonzalez who will admit the patient to his service to the chest pain center Diagnosis Primary Impression: Chest pain Qualified Codes: R07.9 - Chest pain, unspecified Admitting Information Admitting Physician Requests: Observation Felix Ashraf MD Aug 02, 2017 16:04
[2017-08-02 16:17] LABS: AUTOMATED NEUTROPHIL # 3.8 TH/MM3 (1.8-7.7); BASOPHIL # 0.1 TH/MM3 (0-0.2); BASOPHIL % 1.4 % (0.0-2.0); EOSINOPHIL % 0.7 % (0.0-4.0); HEMATOCRIT 40.6 % (35.0-46.0); HEMOGLOBIN 13.5 GM/DL (11.6-15.3); LYMPH % 23.9 % (9.0-44.0); LYMPHOCYTE # 1.4 TH/MM3 (1.0-4.8); MEAN CELL VOLUME 88.6 FL (80.0-100.0); MEAN CORPUSCULAR HEMOGLOBIN 29.4 PG (27.0-34.0); MEAN CORPUSCULAR HGB CONC 33.2 % (32.0-36.0); MONO % 7.5 % (0.0-8.0); MONOCYTE # 0.4 TH/MM3 (0-0.9); NEUT % 66.5 % (16.0-70.0); PLATELET COUNT 247 TH/MM3 (150-450); RED BLOOD COUNT 4.59 MIL/MM3 (4.00-5.30); RED CELL DISTRIBUTION WIDTH 13.6 % (11.6-17.2); WHITE BLOOD COUNT 5.7 TH/MM3 (4.0-11.0)
[2017-08-02 16:25] LABS: CHLORIDE 102 MEQ/L (98-107); SODIUM (NA) 134 MEQ/L (136-145)
[2017-08-02 16:30] LABS: CALCIUM 9.3 MG/DL (8.5-10.1)
[2017-08-02 16:31] LABS: ALBUMIN 3.7 GM/DL (3.4-5.0); BICARBONATE 24.1 MEQ/L (21.0-32.0); BLOOD UREA NITROGEN 13 MG/DL (7-18); GLUCOSE,RANDOM 105 MG/DL (74-106); MAGNESIUM 2.2 MG/DL (1.5-2.5)
[2017-08-02] MEDS ORDERED: EVOL1.7I (16:31)
[2017-08-02 16:33] LABS: ALT (GPT) 18 U/L (10-53)
[2017-08-02 16:34] LABS: AST (GOT) 25 U/L (15-37); CREATININE 0.82 MG/DL (0.50-1.00); GLOMERULAR FILTRATION RATE 67 ML/MIN (>89)
[2017-08-02 16:35] LABS: TOTAL BILIRUBIN ADULT 0.4 MG/DL (0.2-1.0); TOTAL PROTEIN 7.3 GM/DL (6.4-8.2)
[2017-08-02] MEDS ORDERED: CALC1TAB87 PO (16:35)
[2017-08-02 16:36] LABS: ALKALINE PHOSPHATASE 95 U/L (45-117); PROTHROMBIN TIME - PATIENT 10.2 SEC (9.8-11.6)
[2017-08-02 16:39] LABS: TROPONIN I LESS THAN 0.02 NG/ML (0.02-0.05)
--- NOTE | 2017-08-02 17:15 | RADRPT ---
EXAM DATE/TIME: 08/02/2017 16:08 [facility] COMPARISON: CHEST SINGLE AP, October 11, 2016, 13:09. INDICATIONS : Pressure in center of chest for three days. MEDICAL HISTORY : Hypercholesterolemia. Hypertension Myocardial infarction. GERD. SURGICAL HISTORY : Tonsillectomy. Cardiac cath with stent placement. Bilateral arthroscopic knee surgeries. ENCOUNTER: Initial ACUITY: 3 days PAIN SCORE: 0/10 LOCATION: Bilateral chest FINDINGS: A single view of the chest demonstrates the lungs to be hypoinflated but clear. No effusions. Account ing for low lung volumes, heart size is borderline but well compensated. Osseous structures are intac t. CONCLUSION: 1. Hypoinflation with no acute cardiopulmonary process. 2. Heart size is borderline prominent but well compensated. Neil Wesley MD on August 02, 2017 at 17:02 Board Certified Radiologist. This report was verified electronically.
--- NOTE | 2017-08-02 18:18 | HHI.HP ---
[facility] Service [facility] Primary Care Physician Ebonie Rinaldi M.D. Admission Diagnosis Chest pain Diagnoses: (1) Chest pain Diagnosis: Principal Chief Complaint: Chest pain Travel History International Travel<30 Days: No Contact w/Intl Traveler <30 Da: No Traveled to Known Affected Are: No History of Present Illness This is a pleasant 77-year-old female patient with a known medical history of CAD with history of cardiac stent placement, hypertension, hyperlipidemia and GERD who presented to the ED with complaints of chest pain. He shouldn't states that around Sunday evening she developed a intermittent neck pain that seemed to worsen Sunday. Patient states that the neck pain slowly moved down her midsternal chest area and was pressure-like in nature. She decided to take two nitroglycerin tablets on Sunday which showed some relief. Patient states that this morning she developed the same described chest pressure but at this time it radiated to her left shoulder blade. She took one nitroglycerin tablet this morning without relief. And decided to come into the hospital. She denies any nausea, vomiting, diaphoresis associated with pain. Does admit to shortness of breath. Patient states that the sensations she's been feeling feel similar to when she had her OK back in 2012. Patient does follow with Dr. Palomo in the outpatient setting for management of her CAD. At the time of assessment patient states that chest pain has resolved. Denies any recent illness including fever, cough, chills, abdominal pain, nausea, vomiting, diarrhea or dysuria. Patient lives alone. Review of Systems Constitutional: DENIES: Fatigue, Fever, Chills Eyes: DENIES: Blurred vision, Diplopia Respiratory: COMPLAINS OF: Shortness of breath, DENIES: Cough, Sputum production Cardiovascular: COMPLAINS OF: Chest pain, Palpitations Gastrointestinal: DENIES: Abdominal pain, Black stools, Bloody stools, Constipation, Diarrhea, Nausea, Vomiting Hematologic/lymphatic: DENIES: Bruising Immunologic/allergic: DENIES: Eczema Neurologic: DENIES: Abnormal gait Psychiatric: COMPLAINS OF: Anxiety Except as stated in HPI: all other systems reviewed are Neg Past Family Social History Past Medical History CAD with history of OK and cardiac stent placement Hypertension Hyperlipidemia Arthritis GERD Past Surgical History Tonsillectomy Bilateral knee arthroscopic surgery Reported Medications Active Metoprolol Tartrate 25 Mg Tab 25 Mg PO BID Reported Calcium 600 with Vitamin D (Calcium Carbonate-Cholecalciferol) 600-400 mg-Unit Tab 1 Tab PO DAILY Repatha PF Inj (Evolocumab PF Inj) 140 Mg/Ml Syr Fiber Tabs (Calcium Polycarbophil) 625 Mg Tab 625 Mg PO BID PRN Coq10 (Coenzyme Q10 (Ubidecarenone)) 30 Mg Cap 1 Tab PO DAILY Glucosamine Chondroitin (Qfnvixkysdr-Qxywtwvkskz-Qpw C-) 1 Cap Cap 1 Tab PO BID Multiple Vitamin 1 Tab 1 Tab PO DAILY Prevacid (Lansoprazole) 15 Mg Capdr 15 Mg PO DAILY Atorvastatin (Atorvastatin Calcium) 40 Mg Tab 40 Mg PO HS Micardis Hct (Telmisartan-Hydrochlorothiazide) 80-12.5 Mg Tab 1 Tab PO DAILY Aspirin Low Dose (Aspirin) 81 Mg Chew 81 Mg CHEW BID Allergies: Coded Allergies: penicillin G (Unverified Allergy, Intermediate, hives, 02/06/17) swelling and shortness of breath Active Ordered Medications Current Medications Medications (Trade) Dose Ordered Sig/Ani Route Start Time Stop Time Status Last Admin (NS Flush) 2 ml UNSCH PRN IVF 08/02/17 16:00 Family History Paternal medical history significant for stroke. Maternal medical history significant for cardiovascular disease, had an OK at the age of [age]. Social History Denies any current or previous tobacco use. Denies any alcohol use. Denies any illicit drug use. Physical Exam Vital Signs Vital Signs Date Time Temp Pulse Resp B/P (MAP) Pulse Ox O2 Delivery O2 Flow Rate FiO2 08/02/17 16:52 64 18 133/75 (94) 98 Room Air 08/02/17 16:13 18 97 Room Air 08/02/17 16:10 17 97 Room Air 08/02/17 15:50 98.0 67 18 157/78 (104) 100 Physical Exam GENERAL: Well-nourished, well-developed patient in NAD. SKIN: Warm and dry. No rash. HEAD: Normocephalic. Atraumatic. EYES: Pupils equal and round. No scleral icterus. No injection or drainage. ENT: No nasal bleeding or discharge. Mucous membranes pink and moist. NECK: Supple. Trachea midline. CARDIOVASCULAR: Regular rate and rhythm. S1, S2 noted. No murmur appreciated. No reproducible chest pain to palpation. RESPIRATORY: No accessory muscle use. Clear to auscultation. Breath sounds equal bilaterally. GASTROINTESTINAL: Abdomen soft, non-tender, nondistended. Normoactive bowel sounds x4. MUSCULOSKELETAL: No obvious deformities. Extremities without clubbing, cyanosis , or edema. NEUROLOGICAL: Awake and alert. No obvious cranial nerve deficits. Motor grossly within normal limits. 5/5 muscle strength in bilateral upper and lower extremities. Normal speech. PSYCHIATRIC: Appropriate mood and affect; insight and judgment normal. Laboratory Laboratory Tests Test 08/02/17 16:10 White Blood Count 5.7 Red Blood Count 4.59 Hemoglobin 13.5 Hematocrit 40.6 Mean Corpuscular Volume 88.6 Mean Corpuscular Hemoglobin 29.4 Mean Corpuscular Hemoglobin Concent 33.2 Red Cell Distribution Width 13.6 Platelet Count 247 Mean Platelet Volume 9.0 Neutrophils (%) (Auto) 66.5 Lymphocytes (%) (Auto) 23.9 Monocytes (%) (Auto) 7.5 Eosinophils (%) (Auto) 0.7 Basophils (%) (Auto) 1.4 Neutrophils # (Auto) 3.8 Lymphocytes # (Auto) 1.4 Monocytes # (Auto) 0.4 Eosinophils # (Auto) 0.0 Basophils # (Auto) 0.1 CBC Comment DIFF FINAL Differential Comment Prothrombin Time 10.2 Prothromb Time International Ratio 1.0 Activated Partial Thromboplast Time 21.1 Blood Urea Nitrogen 13 Creatinine 0.82 Random Glucose 105 Total Protein 7.3 Albumin 3.7 Calcium Level 9.3 Magnesium Level 2.2 Alkaline Phosphatase 95 Aspartate Amino Transf (AST/SGOT) 25 Alanine Aminotransferase (ALT/SGPT) 18 Total Bilirubin 0.4 Sodium Level 134 Potassium Level 3.5 Chloride Level 102 Carbon Dioxide Level 24.1 Anion Gap 8 Estimat Glomerular Filtration Rate 67 Total Creatine Kinase 83 Troponin I LESS THAN 0.02 Lipase 252 Result Diagram: 08/02/17 1610 08/02/17 1610 Imaging Last Impressions Chest X-Ray 08/02/17 7820 Signed Impressions: Service Date/Time: July 16:08 - CONCLUSION: 1. Hypoinflation with no acute cardiopulmonary process. 2. Heart size is borderline prominent but well compensated. Neil Wesley MD Septic Shock Reassessment Septic shock perfusion: reassessment completed Caprini VTE Risk Assessment Caprini VTE Risk Assessment: Mod/High Risk (score >= 2) Caprini Risk Assessment Model Point Value = 1 Point Value = 2 Point Value = 3 Point Value = 5 Age 41-60 Minor surgery BMI > 25 kg/m2 Swollen legs Varicose veins or History of unexplained or recurrent spontaneous Oral contraceptives or hormone replacement Sepsis (< 1 month) Serious lung disease, including pneumonia (< 1 month) Abnormal pulmonary function Acute myocardial infarction Congestive heart failure (< 1 month) History of inflammatory bowel disease Medical patient at bed rest Age 61-74 Arthroscopic surgery Major open surgery (> 45 min) Laparoscopic surgery (> 45 min) Malignancy Confined to bed (> 72 hours) Immobilizing plaster cast Central venous access Age >= 75 History of VTE Family history of VTE Factor V Leiden Prothrombin [id number] Lupus anticoagulant Anticardiolipin antibodies Elevated serum homocysteine Heparin-induced thrombocytopenia Other congenital or acquired thrombophilia Stroke (< 1 month) Elective arthroplasty Hip, pelvis, or leg fracture Acute spinal cord injury (< 1 month) Prophylaxis Regimen Total Risk Factor Score Risk Level Prophylaxis Regimen 0-1 Low Early ambulation 2 Moderate Order ONE of the following: *Sequential Compression Device (SCD) *Heparin 5000 units SQ BID 3-4 Higher Order ONE of the following medications: *Heparin 5000 units SQ TID *Enoxaparin/Lovenox 40 mg SQ daily (WT < 150 kg, CrCl > 30 mL/min) *Enoxaparin/Lovenox 30 mg SQ daily (WT < 150 kg, CrCl > 10-29 mL/min) *Enoxaparin/Lovenox 30 mg SQ BID (WT < 150 kg, CrCl > 30 mL/min) AND/OR *Sequential Compression Device (SCD) 5 or more Highest Order ONE of the following medications: *Heparin 5000 units SQ TID (Preferred with Epidurals) *Enoxaparin/Lovenox 40 mg SQ daily (WT < 150 kg, CrCl > 30 mL/min) *Enoxaparin/Lovenox 30 mg SQ daily (WT < 150 kg, CrCl > 10-29 mL/min) *Enoxaparin/Lovenox 30 mg SQ BID (WT < 150 kg, CrCl > 30 mL/min) AND *Sequential Compression Device (SCD) Assessment and Plan Problem List: (1) Chest pain ICD Code: R07.9 - Chest pain, unspecified Status: Acute Plan: Patient with a history of CAD and cardiac stent placement. Presented to the ED with chest pain. Has been admitted under observation. Serial EKGs and serial troponins have been ordered for ruling out ACS purposes. Initial troponin flat. Continue to monitor trend. EKG reviewed, showing normal sinus rhythm with controlled heart rate, no ST changes to indicate ischemia Chest pain has resolved now. Continue cardiac telemetry, monitor for any arrhythmias. Patient was given aspirin in the ED. CBC and BMP reviewed, essentially unremarkable. Chest x-ray reviewed showing hypoinflation with no acute cardiopulmonary process. Patient's cardiac enzymes and troponins will be monitored overnight. Depending on these results patient will undergo a cardiac stress test. Further hospitalization and treatment plan will depend on stress test results. Patient is stable at this time and agreeable to the plan. Problem Qualifiers (1) Chest pain: Qualified Codes: R07.9 - Chest pain, unspecified Natalie Morrow Aug 02, 2017 18:18
[2017-08-02] MEDS ORDERED: ACETAMINOPHEN 500 MG CPLT PO PRN (19:00)
[2017-08-02] MEDS ORDERED: ONDANSETRON HCL 4 MG/2 ML VIAL IV PUSH PRN (19:00)
[2017-08-02] MEDS ORDERED: SODIUM CHLORIDE 0.9% FLUSH 10 ML FLUSH IV FLUSH PRN (19:00)
[2017-08-02 20:15] LABS: TROPONIN I LESS THAN 0.02 NG/ML (0.02-0.05)
[2017-08-02] MEDS ORDERED: ATORVASTATIN 40 MG TAB PO SCH (21:00)
[2017-08-02] MEDS ORDERED: GLUCOSAMINE CHONDROITIN VIT C PO SCH (21:00)
[2017-08-02] MEDS: ASPIRIN 81 MG CHEW TAB CHEW SCH (22:38)
[2017-08-02] MEDS: SODIUM CHLORIDE 0.9% FLUSH 10 ML FLUSH IV FLUSH SCH (22:39)
[2017-08-02 22:50] LABS: TROPONIN I LESS THAN 0.02 NG/ML (0.02-0.05)
[2017-08-03] VITALS: BP 142/73; PULSE 60; RESP 16; TEMP 96.4; O2SAT 97
[2017-08-03 02:12] VITALS: PULSE 68
[2017-08-03 04:00] VITALS: BP 118/62; PULSE 71; RESP 16; TEMP 96.8; O2SAT 96
--- NOTE | 2017-08-03 07:46 | HHI.PR ---
Subjective Remarks Follow-up chest pain. Patient seen and examined, lying in bed comfortably. In no apparent distress. Denies any chest pain overnight. Slept well. Will undergo treadmill stress test today. Await results. Vital signs are stable. Objective Vitals Vital Signs Date Time Temp Pulse Resp B/P (MAP) Pulse Ox O2 Delivery O2 Flow Rate FiO2 08/03/17 04:00 96.8 71 16 118/62 (80) 96 08/03/17 02:12 68 08/03/17 00:00 96.4 60 16 142/73 (96) 97 08/03/17 00:00 96.4 60 16 142/73 (96) 97 08/02/17 23:53 94 21 08/02/17 20:25 96.2 68 16 145/71 (95) 97 08/02/17 20:11 142/77 (98) 08/02/17 18:45 67 16 142/77 (98) 98 Room Air 08/02/17 16:52 64 18 133/75 (94) 98 Room Air 08/02/17 16:13 18 97 Room Air 08/02/17 16:10 17 97 Room Air 08/02/17 15:50 98.0 67 18 157/78 (104) 100 I/O 08/02/17 08/02/17 08/02/17 08/03/17 08/03/17 08/03/17 07:00 15:00 23:00 07:00 15:00 23:00 Intake Total 0 ml Balance 0 ml Intake Oral 0 ml # Voids 2 # Bowel Movements 0 Result Diagram: 08/02/17 1610 08/02/17 1610 Imaging Last Impressions Chest X-Ray 08/02/17 1559 Signed Impressions: Service Date/Time: July 16:08 - CONCLUSION: 1. Hypoinflation with no acute cardiopulmonary process. 2. Heart size is borderline prominent but well compensated. Neil Wesley MD Objective Remarks GENERAL: Well-nourished, well-developed patient in NAD. SKIN: Warm and dry. No rash. HEAD: Normocephalic. Atraumatic. EYES: Pupils equal and round. No scleral icterus. No injection or drainage. ENT: No nasal bleeding or discharge. Mucous membranes pink and moist. NECK: Supple. Trachea midline. CARDIOVASCULAR: Regular rate and rhythm. S1, S2 noted. No murmur appreciated. No reproducible chest pain to palpation. RESPIRATORY: No accessory muscle use. Clear to auscultation. Breath sounds equal bilaterally. GASTROINTESTINAL: Abdomen soft, non-tender, nondistended. Normoactive bowel sounds x4. MUSCULOSKELETAL: No obvious deformities. Extremities without clubbing, cyanosis , or edema. NEUROLOGICAL: Awake and alert. No obvious cranial nerve deficits. Motor grossly within normal limits. 5/5 muscle strength in bilateral upper and lower extremities. Normal speech. PSYCHIATRIC: Appropriate mood and affect; insight and judgment normal. A/P Problem List: (1) Chest pain ICD Code: R07.9 - Chest pain, unspecified Status: Acute Plan: Patient with a history of CAD and cardiac stent placement. Presented to the ED with chest pain. Has been admitted under observation. Serial EKGs and serial troponins have been ordered for ruling out ACS purposes. Troponin trend flat EKG reviewed, showing normal sinus rhythm with controlled heart rate, no ST changes to indicate ischemia Chest pain has resolved now. Continue cardiac telemetry, monitor for any arrhythmias. No arrhythmias overnight. Patient was given aspirin in the ED. we'll continue daily aspirin. CBC and BMP reviewed, essentially unremarkable. Chest x-ray reviewed showing hypoinflation with no acute cardiopulmonary process. Patient underwent cardiac treadmill stress test this morning. Awaiting results from on-call chest pain center av specialist. Patient's symptoms have improved. (2) HTN (hypertension) ICD Code: I10 - Essential (primary) hypertension Status: Acute Plan: Continue home medications. Monitor BP trends. (3) Hyperlipidemia ICD Code: E78.5 - Hyperlipidemia, unspecified Status: Acute Plan: Continue home Lipitor. Assessment and Plan Patient underwent cardiac treadmill stress test, images sent and reviewed by Dr. Palomares, on-call av specialist for chest pain center, no ischemia noted. Patient has been updated reported. Will discharge with recommendations follow with PCP and radiologist Dr. Palomo. Patient is encouraged to return to the ED with chest pain persists or worsens. Patient is stable at this time and understandable with the plan. Problem Qualifiers (1) Chest pain: Qualified Codes: R07.9 - Chest pain, unspecified Natalie Morrow Aug 03, 2017 07:46
[2017-08-03 08:55] VITALS: O2SAT 93
[2017-08-03] MEDS ORDERED: COENZYME Q10 PO SCH (09:00)
[2017-08-03] MEDS ORDERED: HYDROCHLOROTHIAZIDE 12.5 MG CAP PO SCH (09:00)
[2017-08-03] MEDS ORDERED: LOSARTAN 50 MG TAB PO SCH (09:00)
[2017-08-03] MEDS ORDERED: MULTIVITAMIN TAB PO SCH (09:00)
[2017-08-03] MEDS ORDERED: CALCIUM POLYCARBOPHIL 625 MG TAB PO PRN (09:00)
[2017-08-03] MEDS ORDERED: LANSOPRAZOLE SOLUTAB 15 MG TAB PO SCH (09:00)
[2017-08-03] MEDS ORDERED: CALCIUM/VITAMIN D 250 MG/125 U TAB PO SCH (09:00)
[2017-08-03] MEDS: ASPIRIN 81 MG CHEW TAB CHEW SCH (09:21)
[2017-08-03] MEDS: SODIUM CHLORIDE 0.9% FLUSH 10 ML FLUSH IV FLUSH SCH (09:24)
[2017-08-03 09:30] VITALS: BP 143/66; PULSE 67; RESP 16; TEMP 98.2; O2SAT 98
--- NOTE | 2017-08-03 12:07 | HHI.DCPOC ---
Discharge Care Plan Diagnosis: (1) Chest pain (2) Hyperlipidemia (3) HTN (hypertension) Goals to Promote Your Health * To prevent worsening of your condition and complications * To maintain your health at the optimal level Directions to Meet Your Goals Take your medications as prescribed Follow your dietary instruction Follow activity as directed Keep your appointments as scheduled Take your immunizations and boosters as scheduled If your symptoms worsen call your PCP, if no PCP go to Urgent Care Center or Emergency Room Smoking is Dangerous to Your Health. Avoid second hand smoke Call the 24-hour hour crisis hotline for domestic abuse at Natalie Morrow Aug 03, 2017 12:06
[2017-08-03 12:30] VITALS: BP 128/67; PULSE 64; RESP 14; TEMP 96.3; O2SAT 98
--- NOTE | 2017-08-03 16:17 | EKG ---
Date Performed: 08/02/2017 Time Performed: 22:05:35 PTAGE: 77 years EKG: Sinus rhythm NONSPECIFIC T-WAVE ABNORMALITY BORDERLINE ECG PREVIOUS TRACING : 08/02/2017 19.13 Since previous tracing, no significant change noted DOCTOR: Chalino Palomares Interpretating Date/Time 08/03/2017 16:15:42
--- NOTE | 2017-08-03 16:19 | EKG ---
Date Performed: 08/02/2017 Time Performed: 19:13:49 PTAGE: 77 years EKG: Sinus rhythm NONSPECIFIC T-WAVE ABNORMALITY BORDERLINE ECG PREVIOUS TRACING : 08/02/2017 15.51 Since previous tracing, no significant change noted DOCTOR: Chalino Palomares Interpretating Date/Time 08/03/2017 16:17:29
--- NOTE | 2017-08-03 16:21 | EKG ---
Date Performed: 08/02/2017 Time Performed: 15:51:03 PTAGE: 77 years EKG: Sinus rhythm NORMAL ECG PREVIOUS TRACING : 10/11/2016 12.50 Since previous tracing, no significant change noted DOCTOR: Chalino Palomares Interpretating Date/Time 08/03/2017 16:18:53
--- NOTE | 2017-08-03 16:29 | TR ---
Date Performed: 08/03/2017 Time Performed: 08:48:39 DOCTOR: Chalino Palomares DRUG LIST: CLINICAL HISTORY: REASON FOR TEST: Chest pain REASON FOR ENDING: OBSERVATION: CONCLUSION: George protocol performed and complete, test stopped secondary to reaching target hea rt rate and leg fatigue. No reproducible chest discomfort. Good exercise tolerance. Recovery quick an d unremarkable. Good BP response. Maximum PU=702 Target HR Whfvbhtd=967.0% Maximum UF=980/95 Total Ex ercise Time=4:00 COMMENTS: Patient exercised using the George protocol. No electrocardiographic changes were seen to suggest ischemia. Hemodynamic response to exercise was normal. No significant arrhythmia was prese nt.
== END 2017-08-03 12:57 | disposition home or self-care (01) ==
LOC: PHED 15:35 → PHEDA 17:19 → PH3A 20:06
PROVIDERS: ADMIT Hospitalist; ATTEND Hospitalist
DX: R07.89 Other chest pain (principal); R06.02 Shortness of breath; M54.2 Cervicalgia; R00.2 Palpitations; I25.10 Atherosclerotic heart disease of native coronary artery without angina pectoris; I25.2 Old myocardial infarction; I10 Essential (primary) hypertension; E78.00 Pure hypercholesterolemia, unspecified; K21.9 Gastro-esophageal reflux disease without esophagitis; M19.90 Unspecified osteoarthritis, unspecified site; Z79.899 Other long term (current) drug therapy; Z79.82 Long term (current) use of aspirin; Z95.5 Presence of coronary angioplasty implant and graft
CPT/HCPCS: 71045; 80053; 82550; 83690; 83735; 84484; 85025; 85610; 85730; 93005; 93017; 99285; G0378

== ENCOUNTER → 2017-09-04 | Outpatient (CLI) | payer MEDICARE, BC ==
[~2017-09-04] MED LIST changes: +CALC1TAB87 PO; -CALCTAB54 PO; +EVOL1.7I; -LACTCAP8 PO; -VITA10003 PO
[2017-09-04 13:37] LABS: ALBUMIN 3.6 GM/DL (3.4-5.0); AST (GOT) 17 U/L (15-37); BICARBONATE 27.1 MEQ/L (21.0-32.0); BLOOD UREA NITROGEN 11 MG/DL (7-18); CALCIUM 9.1 MG/DL (8.5-10.1); CHLORIDE 103 MEQ/L (98-107); CREATININE 0.81 MG/DL (0.50-1.00); GLOMERULAR FILTRATION RATE 68 ML/MIN (>89); GLUCOSE,FASTING 75 MG/DL (74-99); SODIUM (NA) 138 MEQ/L (136-145)
[2017-09-04 13:38] LABS: CHOLESTEROL 135 MG/DL (120-200)
[2017-09-04 13:43] LABS: ALKALINE PHOSPHATASE 92 U/L (45-117); ALT (GPT) 22 U/L (10-53); CHOLESTEROL/ HDL RATIO 2.28 RATIO; LDL CHOLESTEROL 56 MG/DL (0-99); TOTAL BILIRUBIN ADULT 0.4 MG/DL (0.2-1.0); TOTAL PROTEIN 6.5 GM/DL (6.4-8.2); TRIGLYCERIDES 100 MG/DL (42-150)
== END ==
LOC: PLAB 09:27
PROVIDERS: ATTEND Internal Medicine Interventional Cardiology
DX: I25.10 Atherosclerotic heart disease of native coronary artery without angina pectoris (principal); E78.5 Hyperlipidemia, unspecified; Z79.899 Other long term (current) drug therapy
CPT/HCPCS: 36415; 80053; 80061

== ENCOUNTER 2017-10-30 05:05 | Emergency (ER) | payer MEDICARE, BC ==
[2017-10-30] MEDS ORDERED: SODIUM CHLORIDE 0.9% FLUSH 10 ML FLUSH IVF (05:30)
[2017-10-30 05:31] LABS: AUTOMATED NEUTROPHIL # 3.2 TH/MM3 (1.8-7.7); BASOPHIL % 0.8 % (0.0-2.0); EOSINOPHIL # 0.1 TH/MM3 (0-0.4); EOSINOPHIL % 2.6 % (0.0-4.0); HEMATOCRIT 41.9 % (35.0-46.0); HEMO FLAGS DIFF FINAL; LYMPH % 34.1 % (9.0-44.0); MEAN CELL VOLUME 90.2 FL (80.0-100.0); MEAN CORPUSCULAR HEMOGLOBIN 30.2 PG (27.0-34.0); MEAN CORPUSCULAR HGB CONC 33.5 % (32.0-36.0); MEAN PLATELET VOLUME 8.4 FL (7.0-11.0); MONO % 6.4 % (0.0-8.0); MONOCYTE # 0.4 TH/MM3 (0-0.9); NEUT % 56.1 % (16.0-70.0); PLATELET COUNT 240 TH/MM3 (150-450); RED BLOOD COUNT 4.64 MIL/MM3 (4.00-5.30); WHITE BLOOD COUNT 5.7 TH/MM3 (4.0-11.0)
[2017-10-30 05:39] LABS: CHLORIDE 101 MEQ/L (98-107); POTASSIUM 3.3 MEQ/L (3.5-5.1); SODIUM (NA) 136 MEQ/L (136-145)
[2017-10-30] MEDS: ASPIRIN 81 MG CHEW TAB PO (05:39)
[2017-10-30] MEDS: NITROGLYCERIN 0.4 MG SL 25 TABS/BTL SL ×3 (05:39→05:50)
[2017-10-30] MEDS: SODIUM CHLOR 0.9% 1000 ML INJ 1,000 ML IV (05:39)
[2017-10-30 05:41] LABS: CALCIUM 9.5 MG/DL (8.5-10.1)
[2017-10-30 05:42] LABS: ANION GAP 7 MEQ/L (5-15); BICARBONATE 27.8 MEQ/L (21.0-32.0); BLOOD UREA NITROGEN 10 MG/DL (7-18); GLUCOSE,RANDOM 99 MG/DL (74-106); MAGNESIUM 2.2 MG/DL (1.5-2.5)
[2017-10-30 05:43] LABS: APTT (PATIENT) 24.1 SEC (24.3-30.1); PROTHROMBIN TIME - PATIENT 10.1 SEC (9.8-11.6)
[2017-10-30 05:45] LABS: CREATININE 0.92 MG/DL (0.50-1.00); GLOMERULAR FILTRATION RATE 59 ML/MIN (>89)
[2017-10-30 05:50] LABS: TROPONIN I LESS THAN 0.02 NG/ML (0.02-0.05)
[2017-10-30 05:54] LABS: CREATINE KINASE 74 U/L (26-192)
[2017-10-30] MEDS: MORPHINE SULFATE 4 MG/ML INJ IV PUSH (06:00)
[2017-10-30] MEDS: PANTOPRAZOLE SODIUM 40 MG VIAL IV PUSH (06:22)
[2017-10-30 06:28] LABS: D-DIMER 0.46 MG/L FEU (0.00-0.50)
[2017-10-30 08:28] LABS: TROPONIN I LESS THAN 0.02 NG/ML (0.02-0.05)
== END 2017-10-30 09:11 | disposition left against medical advice (07) ==
LOC: PHED 05:05
DX: R07.9 Chest pain, unspecified (principal); R11.0 Nausea; R06.02 Shortness of breath; R00.1 Bradycardia, unspecified; I25.10 Atherosclerotic heart disease of native coronary artery without angina pectoris; I10 Essential (primary) hypertension; E78.00 Pure hypercholesterolemia, unspecified; E78.5 Hyperlipidemia, unspecified; Z86.73 Personal history of transient ischemic attack (TIA), and cerebral infarction without residual deficits
CPT/HCPCS: 71046; 80048; 82550; 83735; 84484; 85025; 85379; 85610; 85730; 93005; 96361; 96374; 99285-25

== ENCOUNTER 2017-11-01 09:14 | Observation (INO) | payer MEDICARE, BC ==
[~2017-11-01] VITALS: Ht 167.6 cm; Wt 83.0 kg
[2017-11-01] VITALS (7 sets, daily range): BP systolic 133–183; BP diastolic 67–88; PULSE 55–64; RESP 18–20; TEMP 96.7–97.5; O2SAT 95–100
[~2017-11-01 09:14] MED LIST changes: -EVOL1.7I; -METO25TA3 PO; +NORV2.5T PO; +TOPR25TA PO
--- NOTE | 2017-11-01 09:38 | PD ---
HPI Chief Complaint: Chest Pain Time Seen by Provider: 09:20 Travel History International Travel<30 days: No Contact w/Intl Traveler<30days: No Traveled to known affect area: No History of Present Illness HPI 77-year-old female says she been having chest pain off and on for several days. She has a cardiac history. She had a stent placed in 2012. She had a stress test in July of this year which was apparently normal. She says it for several days she has been having pain across her chest. She is seems to start in the lower sternal area and then radiates across the chest. She has a smothering feeling when she gets. It is not clearly related to exertion. She does say it seems to occur when she moves her neck forward. She was a patient in the emergency department 2 days ago at that time was recommended that she have further evaluation but she left thinking she can get further testing done as an outpatient. She contacted her physician was not able to see her for a couple of weeks PFSH Past Medical History Hx Anticoagulant Therapy: Yes (ASA 81mg BID) Arthritis: Yes Asthma: No Autoimmune Disease: No Heart Rhythm Problems: No Cancer: No Cardiac Catheterization: Yes (1989 AND 2012 (STENT PLACED)) High Cholesterol: Yes Chemotherapy: No Chest Pain: Yes Congestive Heart Failure: No COPD: No Cerebrovascular Accident: Yes Diabetes: No Diminished Hearing: No Endocrine: No Gastrointestinal Disorders: Yes (acid reflux) GERD: No Glaucoma: No Genitourinary: No Headaches: No Hepatitis: No Hiatal Hernia: No Hypertension: Yes Immune Disorder: No Implanted Vascular Access Dvce: No Kidney Stones: No Medical other: Yes (GERD/REFLUX, ARTHRITIS) Musculoskeletal: Yes Neurologic: No Psychiatric: No Reproductive: No Respiratory: No Immunizations Current: Yes Migraines: No Myocardial Infarction: Yes Renal Failure: No Seizures: No Sleep Apnea: No Thyroid Disease: No Ulcer: No ?: Not Menopausal: No : 3 Para: 3 Past Surgical History Abdominal Surgery: No AICD: No Arteriovenous Shunt: No Ear Surgery: No Endocrine Surgery: No Eye Surgery: No Genitourinary Surgery: No Gynecologic Surgery: No Hysterectomy: No Insulin Pump: No Joint Replacement: No Neurologic Surgery: No Oral Surgery: Yes (TONSILECTOMY) Pacemaker: No Thoracic Surgery: No Tonsillectomy: Yes Social History Alcohol Use: Yes (socially ) Tobacco Use: No Substance Use: No Allergies-Medications (Allergen,Severity, Reaction): Coded Allergies: penicillin G (Unverified Allergy, Intermediate, hives, 11/01/17) swelling and shortness of breath Reported Meds & Prescriptions Reported Meds & Active Scripts Active Reported Norvasc (Amlodipine Besylate) 2.5 Mg Tab 2.5 Mg PO DAILY Toprol XL (Metoprolol Succinate) 25 Mg Tab 25 Mg PO DAILY Calcium 600 with Vitamin D (Calcium Carbonate-Cholecalciferol) 600-400 mg-Unit Tab 1 Tab PO DAILY Fiber Tabs (Calcium Polycarbophil) 625 Mg Tab 625 Mg PO BID PRN Coq10 (Coenzyme Q10 (Ubidecarenone)) 30 Mg Cap 1 Tab PO DAILY Glucosamine Chondroitin (Aoyxcfkhhjp-Wxfwyxhrxdf-Gcf C-) 1 Cap Cap 1 Tab PO BID Multiple Vitamin 1 Tab 1 Tab PO DAILY Prevacid (Lansoprazole) 15 Mg Capdr 15 Mg PO DAILY Atorvastatin (Atorvastatin Calcium) 40 Mg Tab 40 Mg PO HS Micardis Hct (Telmisartan-Hydrochlorothiazide) 80-12.5 Mg Tab 1 Tab PO DAILY Aspirin Low Dose (Aspirin) 81 Mg Chew 81 Mg CHEW BID Physical Exam Narrative GENERAL: Well-developed female SKIN: Focused skin assessment warm/dry. HEAD: Atraumatic. Normocephalic. EYES: Pupils equal and round. No scleral icterus. No injection or drainage. ENT: No nasal bleeding or discharge. Mucous membranes pink and moist. NECK: Trachea midline. No JVD. CARDIOVASCULAR: Regular rate and rhythm. No murmur appreciated. RESPIRATORY: No accessory muscle use. Clear to auscultation. Breath sounds equal bilaterally. GASTROINTESTINAL: Abdomen soft, non-tender, nondistended. Hepatic and splenic margins not palpable. MUSCULOSKELETAL: No obvious deformities. No clubbing. No cyanosis. No edema. NEUROLOGICAL: Awake and alert. No obvious cranial nerve deficits. Motor grossly within normal limits. Normal speech. PSYCHIATRIC: Appropriate mood and affect; insight and judgment normal. Data Data Last Documented VS Vital Signs Date Time Temp Pulse Resp B/P (MAP) Pulse Ox O2 Delivery O2 Flow Rate FiO2 11/01/17 10:55 55 20 133/67 (89) 100 11/01/17 09:48 Nasal Cannula 2.00 11/01/17 09:15 97.5 Orders Orders Electrocardiogram (11/01/17 09:35) B-Type Natriuretic Peptide (11/01/17 09:35) Complete Blood Count With Diff (11/01/17:35) Comprehensive Metabolic Panel (11/01/17:35) Magnesium (Mg) (11/01/17 09:35) Prothrombin Time / Inr (Pt) (11/01/17 09:35) Act Partial Throm Time (Ptt) (11/01/17 09:35) Troponin I (11/01/17:35) Ecg Monitoring (11/01/17:35) Bilateral Bp Monitoring (11/01/17:35) Iv Access Insert/Monitor (11/01/17:35) Oximetry (11/01/17:35) Oxygen Administration (11/01/17:35) Sodium Chloride 0.9% Flush (Ns Flush) (11/01/17 09:45) Chest, Pa & Lat (11/01/17 09:35) Admit Order (Ed Use Only) (11/01/17 11:15) Place In Observation (11/01/17 11:17) Activity Bed Rest With Brp (11/01/17 11:17) Vital Signs (Adult) Q4H (11/01/17 11:17) Cardiac Rhythm .As Directed (11/01/17 11:17) Notify Dr: Other .PRN (11/01/17 11:17) Notify DrAshley Parameters (11/01/17 11:17) Resp Oxygen Nasal Cannula (11/01/17 ) Diet Npo (11/01/17 Lunch) Ckmb (Isoenzyme) Profile (11/01/17 12:30) Ckmb (Isoenzyme) Profile (11/01/17 15:30) Troponin I (11/01/17 12:30) Troponin I (11/01/17 15:30) Electrocardiogram (11/01/17 12:30) Electrocardiogram (11/01/17 15:30) ^ Obtain (11/01/17 11:17) Sodium Chloride 0.9% Flush (Ns Flush) (11/01/17 11:30) Sodium Chloride 0.9% Flush (Ns Flush) (11/01/17 21:00) Acetaminophen (Tylenol) (11/01/17 11:30) Acetamin-Hydrocod 325-7.5 Mg ([place] 7.5 (11/01/17 11:30) Morphine Inj (Morphine Inj) (11/01/17 11:30) Ondansetron Inj (Zofran Inj) (11/01/17 11:30) Nitroglycerin Sl (Nitrostat Sl) (11/01/17 11:30) Aspirin (Aspirin) (11/02/17 09:00) Rock Wool Insulator / Telemetry MANDA.Q8H (11/01/17 11:17) Scd Bilateral/Knee High MANDA.BID (11/01/17 11:17) Rehan Bilateral/Knee High MANDA.QSHIFT (11/01/17 11:17) Labs Laboratory Tests Test 11/01/17 09:35 White Blood Count 5.8 TH/MM3 Red Blood Count 4.58 MIL/MM3 Hemoglobin 13.9 GM/DL Hematocrit 41.2 % Mean Corpuscular Volume 90.0 FL Mean Corpuscular Hemoglobin 30.3 PG Mean Corpuscular Hemoglobin Concent 33.7 % Red Cell Distribution Width 13.5 % Platelet Count 261 TH/MM3 Mean Platelet Volume 9.1 FL Neutrophils (%) (Auto) 69.7 % Lymphocytes (%) (Auto) 21.0 % Monocytes (%) (Auto) 7.1 % Eosinophils (%) (Auto) 1.1 % Basophils (%) (Auto) 1.1 % Neutrophils # (Auto) 4.0 TH/MM3 Lymphocytes # (Auto) 1.2 TH/MM3 Monocytes # (Auto) 0.4 TH/MM3 Eosinophils # (Auto) 0.1 TH/MM3 Basophils # (Auto) 0.1 TH/MM3 CBC Comment DIFF FINAL Differential Comment Prothrombin Time 10.1 SEC Prothromb Time International Ratio 1.0 RATIO Activated Partial Thromboplast Time 22.9 SEC Blood Urea Nitrogen 10 MG/DL Creatinine 0.89 MG/DL Random Glucose 96 MG/DL Total Protein 7.3 GM/DL Albumin 3.6 GM/DL Calcium Level 9.0 MG/DL Magnesium Level 2.1 MG/DL Alkaline Phosphatase 89 U/L Aspartate Amino Transf (AST/SGOT) 24 U/L Alanine Aminotransferase (ALT/SGPT) 21 U/L Total Bilirubin 0.6 MG/DL Sodium Level 140 MEQ/L Potassium Level 3.7 MEQ/L Chloride Level 104 MEQ/L Carbon Dioxide Level 27.2 MEQ/L Anion Gap 9 MEQ/L Estimat Glomerular Filtration Rate 61 ML/MIN Troponin I LESS THAN 0.02 NG/ML B-Type Natriuretic Peptide 80 PG/ML MDM Medical Decision Making Medical Screen Exam Complete: Yes Emergency Medical Condition: Yes Medical Record Reviewed: Yes Differential Diagnosis Differential includes coronary artery disease, GERD, musculoskeletal pain Narrative Course EKG is unchanged. Troponin is normal. Case discussed with Dr. Palomo who recommends admission to chest pain center Admitting Information Admitting Physician Requests: Observation Seb Chaudhry MD November 01, 2017 09:38
[2017-11-01] MEDS ORDERED: SODIUM CHLORIDE 0.9% FLUSH 10 ML FLUSH IVF PRN (09:45)
[2017-11-01 09:49] LABS: BASOPHIL # 0.1 TH/MM3 (0-0.2); BASOPHIL % 1.1 % (0.0-2.0); EOSINOPHIL # 0.1 TH/MM3 (0-0.4); EOSINOPHIL % 1.1 % (0.0-4.0); HEMATOCRIT 41.2 % (35.0-46.0); HEMOGLOBIN 13.9 GM/DL (11.6-15.3); LYMPHOCYTE # 1.2 TH/MM3 (1.0-4.8); MEAN CORPUSCULAR HEMOGLOBIN 30.3 PG (27.0-34.0); MEAN CORPUSCULAR HGB CONC 33.7 % (32.0-36.0); MEAN PLATELET VOLUME 9.1 FL (7.0-11.0); MONO % 7.1 % (0.0-8.0); MONOCYTE # 0.4 TH/MM3 (0-0.9); NEUT % 69.7 % (16.0-70.0); PLATELET COUNT 261 TH/MM3 (150-450); RED BLOOD COUNT 4.58 MIL/MM3 (4.00-5.30); RED CELL DISTRIBUTION WIDTH 13.5 % (11.6-17.2); WHITE BLOOD COUNT 5.8 TH/MM3 (4.0-11.0)
[2017-11-01 10:02] LABS: PROTHROMBIN TIME - PATIENT 10.1 SEC (9.8-11.6)
--- NOTE | 2017-11-01 10:06 | RADRPT ---
EXAM DATE/TIME: 11/01/2017 09:49 [facility] COMPARISON: CHEST PA & LAT, October 30, 2017, 5:27. INDICATIONS : Chest pain. MEDICAL HISTORY : Hypertension. Myocardial infarction. Hypercholesterolemia. GERD SURGICAL HISTORY : Coronary artery stent. ENCOUNTER: Initial ACUITY: 4 - 6 days PAIN SCORE: 2/10 LOCATION: Bilateral chest FINDINGS: PA and lateral views of the chest demonstrate the lungs to be symmetrically aerated without evidence of mass or infiltrate. There is some blunting of the right costophrenic angle possibly representing a very tiny effusion. The cardiomediastinal contours are unremarkable. A short metallic stent projec ts over the left heart border. Osseous structures are intact. CONCLUSION: 1. Possible tiny right pleural effusion with some blunting of the costophrenic angle. Lungs are other aguirre clear. 2. Coronary stent projecting over the left heart border Neil Wesley MD on November 01, 2017 at 10:01 Board Certified Radiologist. This report was verified electronically.
[2017-11-01 10:17] LABS: CHLORIDE 104 MEQ/L (98-107); SODIUM (NA) 140 MEQ/L (136-145)
[2017-11-01 10:21] LABS: ALBUMIN 3.6 GM/DL (3.4-5.0); BICARBONATE 27.2 MEQ/L (21.0-32.0); BLOOD UREA NITROGEN 10 MG/DL (7-18); GLUCOSE,RANDOM 96 MG/DL (74-106); MAGNESIUM 2.1 MG/DL (1.5-2.5)
[2017-11-01 10:24] LABS: ALT (GPT) 21 U/L (10-53); AST (GOT) 24 U/L (15-37); CREATININE 0.89 MG/DL (0.50-1.00); GLOMERULAR FILTRATION RATE 61 ML/MIN (>89)
[2017-11-01 10:26] LABS: TOTAL BILIRUBIN ADULT 0.6 MG/DL (0.2-1.0); TOTAL PROTEIN 7.3 GM/DL (6.4-8.2)
[2017-11-01 10:27] LABS: ALKALINE PHOSPHATASE 89 U/L (45-117)
[2017-11-01 10:29] LABS: TROPONIN I LESS THAN 0.02 NG/ML (0.02-0.05)
[2017-11-01] MEDS ORDERED: ONDANSETRON HCL 4 MG/2 ML VIAL IV PUSH PRN (11:30)
[2017-11-01] MEDS ORDERED: SODIUM CHLORIDE 0.9% FLUSH 10 ML FLUSH IV FLUSH PRN (11:30)
[2017-11-01] MEDS ORDERED: ACETAMINOPHEN/HYDROcodone 325 MG/7.5 MG TAB PO PRN (11:30)
[2017-11-01] MEDS ORDERED: NITROGLYCERIN 0.4 MG SL 25 TABS/BTL SL PRN (11:30)
[2017-11-01] MEDS ORDERED: MORPHINE SULFATE 4 MG/ML INJ IV PUSH PRN (11:30)
[2017-11-01] MEDS ORDERED: ACETAMINOPHEN 500 MG CPLT PO PRN (11:30)
--- NOTE | 2017-11-01 13:01 | HHI.HP ---
[facility] Primary Care Physician Ebonie Rinaldi M.D. Admission Diagnosis CHEST PAIN Diagnoses: (1) Chest pain Diagnosis: Principal Chief Complaint: Chest pain Travel History International Travel<30 Days: No Contact w/Intl Traveler <30 Da: No Traveled to Known Affected Are: No History of Present Illness This 77-year-old female with known history of coronary disease status post stenting, hypertension, hyper lipidemia, gastroesophageal reflux, arthritis who we presented to the hospital because of chest pain. Patient states that she was here 3 days ago for the same symptoms of chest discomfort located in the front part of her chest which she ranks as a 1/10 on pain scale and intermittently rated up into her neck which she indicates was a 5/10 on a pain scale. Patient does have history of coronary disease and stents so she was concerned she came to emergency department for evaluation. At that time is recommended that she have further testing done, however she had things to take care of and she did not want to get admitted at that time. Patient states that she has contacted her primary call doctor as well as her mill tender washing. She notified me that her mill tender washing told her that he reviewed her hospital records and there is no reason for her to have an appointment for further evaluation. She does have an appointment with her primary medical doctor on November 09, 2017. However the pain continued to worsen go up into her neck so she came to emergency department again. ER physician evaluated the patient contact her mill tender washing who recommended that the patient be observed in the chest pain center. Patient very atypical chest discomfort. Denies any nausea, vomiting, shortness of breath, dyspnea, lightheadedness, dizziness, diaphoresis. Patient just underwent full cardiac evaluation 3 months ago August 02, 2017 where she did undergo serial cardiac enzymes, serial EKGs as well as exercise stress test which all were unremarkable. Review of Systems Cardiovascular: COMPLAINS OF: Chest pain Musculoskeletal: COMPLAINS OF: Neck pain Except as stated in HPI: all other systems reviewed are Neg Past Family Social History Past Medical History Hypertension Hyperlipidemia History myocardial infarction Coronary disease status post stenting Arthritis Gastroesophageal reflux Past Surgical History Tonsillectomy Bilateral knee arthroscopic surgery Cardiac catheterization in 2013 Reported Medications Reported Meds & Active Scripts Active Reported Norvasc (Amlodipine Besylate) 2.5 Mg Tab 2.5 Mg PO DAILY Toprol XL (Metoprolol Succinate) 25 Mg Tab 25 Mg PO DAILY Calcium 600 with Vitamin D (Calcium Carbonate-Cholecalciferol) 600-400 mg-Unit Tab 1 Tab PO DAILY Fiber Tabs (Calcium Polycarbophil) 625 Mg Tab 625 Mg PO BID PRN Coq10 (Coenzyme Q10 (Ubidecarenone)) 30 Mg Cap 1 Tab PO DAILY Glucosamine Chondroitin (Xocltmjxuyk-Jpgbnxexrxe-Yko C-) 1 Cap Cap 1 Tab PO BID Multiple Vitamin 1 Tab 1 Tab PO DAILY Prevacid (Lansoprazole) 15 Mg Capdr 15 Mg PO DAILY Atorvastatin (Atorvastatin Calcium) 40 Mg Tab 40 Mg PO HS Micardis Hct (Telmisartan-Hydrochlorothiazide) 80-12.5 Mg Tab 1 Tab PO DAILY Aspirin Low Dose (Aspirin) 81 Mg Chew 81 Mg CHEW BID Allergies: Coded Allergies: penicillin G (Unverified Allergy, Intermediate, hives, 11/01/17) swelling and shortness of breath Family History Family history reviewed and significant for mother with myocardial infarction at age 71, father significant for stroke Social History Patient does drink a glass of wine occasionally. Denies any tobacco or illicit drug use Physical Exam Vital Signs Vital Signs Date Time Temp Pulse Resp B/P (MAP) Pulse Ox O2 Delivery O2 Flow Rate FiO2 11/01/17 12:38 11/01/17 11:42 58 20 156/78 (104) 98 11/01/17 10:55 55 20 133/67 (89) 100 11/01/17 09:48 60 20 149/78 (101) 99 Nasal Cannula 2.00 148/69 (95) 11/01/17 09:43 95 11/01/17 09:15 97.5 63 18 183/88 (119) 99 Physical Exam GENERAL: Well-developed, well-nourished, in no acute distress. alert and orientated HEENT: Head is normocephalic without any lesions or masses noted. Facial features are symmetric. Eyes: Pupils equal round reactive to light. Extraocular muscles are intact. Conjunctivae were clear. Oropharyngeal: Pharynx without any erythema edema. Tongue is midline without deviation. Buccal mucosa is moist without any masses or lesions NECK: Supple without any masses. Trachea midline no deviation. No JVD, no bruits are appreciated CARDIAC: Regular rhythm, regular rate. S1/S2 are heard. No murmurs gallops or rubs. LUNGS: Clear to auscultation bilaterally. No wheeze, rhonchi or rales. No use of accessory muscles on inspiration or expiration. ABDOMEN: Soft, nontender. Nondistended. Bowel sounds heard in all 4 quadrants. No organomegaly or masses. Negative rebound, negative guarding EXTREMITIES: No edema, pulses are equal bilaterally. No cyanosis or clubbing NEUROLOGY: Mood and affect appear appropriate. Cranial nerves II through XII grossly intact. Muscle strength 5/5 in upper and lower extremities bilaterally. Deep tendon reflexes are 2+ in upper and lower extremities bilaterally. Laboratory Laboratory Tests Test 11/01/17 09:35 White Blood Count 5.8 Red Blood Count 4.58 Hemoglobin 13.9 Hematocrit 41.2 Mean Corpuscular Volume 90.0 Mean Corpuscular Hemoglobin 30.3 Mean Corpuscular Hemoglobin Concent 33.7 Red Cell Distribution Width 13.5 Platelet Count 261 Mean Platelet Volume 9.1 Neutrophils (%) (Auto) 69.7 Lymphocytes (%) (Auto) 21.0 Monocytes (%) (Auto) 7.1 Eosinophils (%) (Auto) 1.1 Basophils (%) (Auto) 1.1 Neutrophils # (Auto) 4.0 Lymphocytes # (Auto) 1.2 Monocytes # (Auto) 0.4 Eosinophils # (Auto) 0.1 Basophils # (Auto) 0.1 CBC Comment DIFF FINAL Differential Comment Prothrombin Time 10.1 Prothromb Time International Ratio 1.0 Activated Partial Thromboplast Time 22.9 Blood Urea Nitrogen 10 Creatinine 0.89 Random Glucose 96 Total Protein 7.3 Albumin 3.6 Calcium Level 9.0 Magnesium Level 2.1 Alkaline Phosphatase 89 Aspartate Amino Transf (AST/SGOT) 24 Alanine Aminotransferase (ALT/SGPT) 21 Total Bilirubin 0.6 Sodium Level 140 Potassium Level 3.7 Chloride Level 104 Carbon Dioxide Level 27.2 Anion Gap 9 Estimat Glomerular Filtration Rate 61 Troponin I LESS THAN 0.02 B-Type Natriuretic Peptide 80 Result Diagram: 11/01/1735 11/01/17934 Imaging Last Impressions Chest X-Ray 11/01/17934 Signed Impressions: Service Date/Time: October 09:49 - CONCLUSION: 1. Possible tiny right pleural effusion with some blunting of the costophrenic angle. Lungs are otherwise clear. 2. Coronary stent projecting over the left heart border MD Michelle Mojica VTE Risk Assessment Caprinben VTE Risk Assessment: Mod/High Risk (score >= 2) Caprini Risk Assessment Model Point Value = 1 Point Value = 2 Point Value = 3 Point Value = 5 Age 41-60 Minor surgery BMI > 25 kg/m2 Swollen legs Varicose veins or History of unexplained or recurrent spontaneous Oral contraceptives or hormone replacement Sepsis (< 1 month) Serious lung disease, including pneumonia (< 1 month) Abnormal pulmonary function Acute myocardial infarction Congestive heart failure (< 1 month) History of inflammatory bowel disease Medical patient at bed rest Age 61-74 Arthroscopic surgery Major open surgery (> 45 min) Laparoscopic surgery (> 45 min) Malignancy Confined to bed (> 72 hours) Immobilizing plaster cast Central venous access Age >= 75 History of VTE Family history of VTE Factor V Leiden Prothrombin [id number] Lupus anticoagulant Anticardiolipin antibodies Elevated serum homocysteine Heparin-induced thrombocytopenia Other congenital or acquired thrombophilia Stroke (< 1 month) Elective arthroplasty Hip, pelvis, or leg fracture Acute spinal cord injury (< 1 month) Prophylaxis Regimen Total Risk Factor Score Risk Level Prophylaxis Regimen 0-1 Low Early ambulation 2 Moderate Order ONE of the following: *Sequential Compression Device (SCD) *Heparin 5000 units SQ BID 3-4 Higher Order ONE of the following medications: *Heparin 5000 units SQ TID *Enoxaparin/Lovenox 40 mg SQ daily (WT < 150 kg, CrCl > 30 mL/min) *Enoxaparin/Lovenox 30 mg SQ daily (WT < 150 kg, CrCl > 10-29 mL/min) *Enoxaparin/Lovenox 30 mg SQ BID (WT < 150 kg, CrCl > 30 mL/min) AND/OR *Sequential Compression Device (SCD) 5 or more Highest Order ONE of the following medications: *Heparin 5000 units SQ TID (Preferred with Epidurals) *Enoxaparin/Lovenox 40 mg SQ daily (WT < 150 kg, CrCl > 30 mL/min) *Enoxaparin/Lovenox 30 mg SQ daily (WT < 150 kg, CrCl > 10-29 mL/min) *Enoxaparin/Lovenox 30 mg SQ BID (WT < 150 kg, CrCl > 30 mL/min) AND *Sequential Compression Device (SCD) Assessment and Plan Assessment and Plan Chest pain, atypical -Patient with increased risk factors to include age, hypertension, hyper lipidemia, history of myocardial infarction, coronary artery disease, family history of heart disease -Patient been having intermittent and now persistent chest/neck discomfort since 10/30/2017. Patient has just undergone recent cardiac workup in July 2017 with exercise stress test which was unremarkable did not show any signs of ischemia. -Patient had been ruled out for acute coronary event with serial cardiac enzymes that have remained negative, -Serial EKGs were performed which did not indicate any acute abnormality or any changes -Continue aspirin, metoprolol, atorvastatin, Norvasc,ARB. -Patient should follow-up with her mill tender washing for further evaluation and upon discharge Hypertension, hyper lipidemia, coronary disease, history of myocardial infarction -Home medications have been continued DVT prevention -Sequential compression devices Discharge disposition Discharge home in stable condition Activity: Ad bonnie. Diet: Healthy heart diet Medication per medication reconciliation Follow-up with primary medical doctor in 1 week Charlie Barahona November 01, 2017 13:01
[2017-11-01 13:40] LABS: TROPONIN I LESS THAN 0.02 NG/ML (0.02-0.05)
--- NOTE | 2017-11-01 14:23 | EKG ---
Date Performed: 11/01/2017 Time Performed: 13:06:08 PTAGE: 77 years EKG: SINUS BRADYCARDIA BORDERLINE ECG PREVIOUS TRACING : 10/30/2017 05.17 Since previous tracing, no significant change noted DOCTOR: Clyde Mcintyre Interpretating Date/Time 11/01/2017 14:22:26
[2017-11-01 16:09] LABS: TROPONIN I LESS THAN 0.02 NG/ML (0.02-0.05)
--- NOTE | 2017-11-01 16:13 | HHI.DCPOC ---
Discharge Care Plan Diagnosis: (1) Chest pain Goals to Promote Your Health * To prevent worsening of your condition and complications * To maintain your health at the optimal level Directions to Meet Your Goals Take your medications as prescribed Follow your dietary instruction Follow activity as directed Keep your appointments as scheduled Take your immunizations and boosters as scheduled If your symptoms worsen call your PCP, if no PCP go to Urgent Care Center or Emergency Room Smoking is Dangerous to Your Health. Avoid second hand smoke Call the 24-hour hour crisis hotline for domestic abuse at Charlie Barahona November 01, 2017 16:13
[2017-11-01] MEDS ORDERED: SODIUM CHLORIDE 0.9% FLUSH 10 ML FLUSH IV FLUSH SCH (21:00)
[2017-11-01] MEDS ORDERED: ATORVASTATIN 40 MG TAB PO SCH (21:00)
[2017-11-02] MEDS ORDERED: NON-FORMULARY DRUG (Telmisartan-Hydrochlorothiazide (Micardis Hct) 1 TAB) PO SCH (09:00)
[2017-11-02] MEDS ORDERED: HYDROCHLOROTHIAZIDE 12.5 MG CAP PO SCH (09:00)
[2017-11-02] MEDS ORDERED: amLODIPine BESYLATE 5 MG TAB PO SCH (09:00)
[2017-11-02] MEDS ORDERED: ASPIRIN 325 MG TAB PO SCH (09:00)
[2017-11-02] MEDS ORDERED: METOPROLOL SUCCINATE 25 MG EXTENDED RELEASE TAB PO SCH (09:00)
[2017-11-02] MEDS ORDERED: LOSARTAN 50 MG TAB PO SCH (09:00)
[2017-11-02] MEDS ORDERED: PANTOPRAZOLE SOD 20 MG DELAYED RELEASE TAB PO SCH (09:00)
--- NOTE | 2017-11-03 08:43 | EKG ---
Date Performed: 11/01/2017 Time Performed: 15:36:11 PTAGE: 77 years EKG: Sinus rhythm NONSPECIFIC T-WAVE ABNORMALITY BORDERLINE ECG PREVIOUS TRACING : 11/01/2017 13.06 DOCTOR: Sofiya Major Interpretating Date/Time 11/03/2017 08:40:00
== END 2017-11-01 17:01 | disposition home or self-care (01) ==
LOC: PHED 09:14 → PHEDA 11:19 → PH3A 12:31
PROVIDERS: ADMIT Hospitalist; ATTEND Hospitalist
DX: R07.89 Other chest pain (principal); I25.10 Atherosclerotic heart disease of native coronary artery without angina pectoris; R00.1 Bradycardia, unspecified; I10 Essential (primary) hypertension; E78.5 Hyperlipidemia, unspecified; I25.2 Old myocardial infarction; K21.9 Gastro-esophageal reflux disease without esophagitis; M19.90 Unspecified osteoarthritis, unspecified site; Z95.5 Presence of coronary angioplasty implant and graft; Z79.899 Other long term (current) drug therapy; Z79.82 Long term (current) use of aspirin; Z86.73 Personal history of transient ischemic attack (TIA), and cerebral infarction without residual deficits
CPT/HCPCS: 71046; 80053; 82550; 83735; 83880; 84484; 85025; 85610; 85730; 93005; 99285; G0378

== ENCOUNTER 2018-03-09 07:31 | Observation (INO) ==
[2018-03-09 07:49] VITALS: RESP 16; TEMP 97.9; O2SAT 96
--- NOTE | 2018-03-09 07:56 | ED ---
HPI General Chief Complaint: Chest Pain Stated Complaint: Chest Pain Time Seen by Provider: 03/09/18 07:53 Source: patient Mode of arrival: ambulatory Limitations: no limitations History of Present Illness HPI narrative: 77-year-old female patient with history of previous SD and stenting done by Dr. Palomo, hypertension, high cholesterol, chronic neck and back pains for which she has been getting spinal injections with Dr. Kwon, presents to the ER today for about a week history of upper back discomfort and neck discomfort which she thought was related to her chronic pains, but then last night started having pressure-like substernal chest pains and shortness of breath. She states that it was a 6 out of 10 last night, but now is a 2 out of 10. She is not sure whether there is any exacerbating or relieving peers. She denies any fevers or any other issues. Related Data Home Medications Medication Instructions Recorded Confirmed amlodipine [Norvasc] 2.5 mg PO DAILY 02/18/18 03/09/18 aspirin [Aspirin Low Dose] 81 mg PO BID 02/18/18 03/09/18 atorvastatin 40 mg PO DAILY 02/18/18 03/09/18 calcium carbonate [Calcium 600] 600 mg PO DAILY 02/18/18 03/09/18 coQ10 (ubiquinol) 200 mg PO DAILY 02/18/18 03/09/18 lansoprazole [Prevacid] 15 mg PO DAILY 02/18/18 03/09/18 metoprolol succinate [Toprol XL] 25 mg PO BID 02/18/18 03/09/18 multivitamin [Multiple Vitamins] 1 tab PO DAILY 02/18/18 03/09/18 telmisartan-hydrochlorothiazid 1 tab PO DAILY 02/18/18 03/09/18 [Micardis HCT] Allergies Allergy/AdvReac Type Severity Reaction Status Date / Time penicillin G Allergy Intermediate hives Verified 03/09/18 07:49 Review of Systems ROS: all other systems reviewed are negative PMFSH History History Provided By: Patient Medical History Medical History Elevated cholesterol (Acute) GERD (gastroesophageal reflux disease) (Acute) Heart attack (Acute) Hypertension (Acute) Surgical History Surgical History Stented coronary artery (Acute) Social History Social History Substance History: No History of Abuse Second Hand Smoke Exposure: No Smoking Status: Never smoker How Often Do You Have a Drink Containing Alcohol: Monthly or less Recent Travel in [facility] within the Last 8 Weeks: No Recent Out of Country Travel within the Last 8 Weeks: No Exam Narrative Exam Narrative: GENERAL: Well-developed elderly female patient currently in mild distress. Awake and oriented 3. SKIN: Focused skin assessment warm/dry. HEAD: Atraumatic. Normocephalic. EYES: Pupils equal and round. No scleral icterus. No injection or drainage. ENT: No nasal bleeding or discharge. Mucous membranes pink and moist. NECK: Trachea midline. No JVD. Supple. CARDIOVASCULAR: Regular rate and rhythm. No murmur appreciated. Pulses are present and equal bilaterally. RESPIRATORY: No accessory muscle use. Clear to auscultation. Breath sounds equal bilaterally. GASTROINTESTINAL: Abdomen soft, non-tender, nondistended. Hepatic and splenic margins not palpable. MUSCULOSKELETAL: No obvious deformities. No clubbing. No cyanosis. No edema. NEUROLOGICAL: Awake and alert. No obvious cranial nerve deficits. Motor grossly within normal limits. Normal speech. PSYCHIATRIC: Appropriate mood and affect; insight and judgment normal. Course Initial Documented Vital Signs Temperature 97.9 F 03/09/18 07:46 Pulse Rate 57 L 03/09/18 07:46 Respiratory Rate 16 03/09/18 07:46 Blood Pressure 140/78 03/09/18 07:46 Pulse Oximetry 96 03/09/18 07:46 Last Documented Vital Signs Temperature 97.9 F 03/09/18 07:46 Pulse Rate 57 L 03/09/18 08:22 Respiratory Rate 16 03/09/18 08:28 Blood Pressure 140/78 03/09/18 07:46 Pulse Oximetry 96 03/09/18 08:22 Medical Decision Making MDM Narrative Medical decision making narrative: EKG did not show any signs of ST changes. Cardiac enzymes are negative. Lab work was fairly unremarkable otherwise. Chest x-ray was negative as well. However, considering her history of cardiac disease, my plan would be to admit her to chest pain center for further evaluation. Case is discussed with Dr. Chotas for admission. Medical Screen Exam Complete: Yes Emergency Medical Condition: Yes Differential Diagnosis Differential Diagnosis: ACS versus anxiety attack versus pneumonia versus dysrhythmias Lab Data Result diagrams: 03/09/18 08:15 18 08:15 Lab Results 03/09/18 03/09/18 Range/Units 08:15 08:15 CBC w Diff Auto diff final WBC 5.6 (4.0-11.0) th/mm3 RBC 4.63 (4.00-5.30) mil/mm3 Hgb 14.4 (11.6-15.3) gm/dL Hct 42.3 (35.0-46.0) % MCV 91.4 (80.0-100.0) fL MCH 31.2 (27.0-34.0) pg MCHC 34.1 (32.0-36.0) % RDW 13.5 (11.6-17.2) % Plt Count 252 (150-450) th/mm3 MPV 7.8 (7.0-11.0) fL Neut % (Auto) 67.9 (16.0-70.0) % Lymph % (Auto) 19.5 (9.0-44.0) % Davie % (Auto) 10.8 H (0.0-8.0) % Eos % (Auto) 1.3 (0.0-4.0) % Baso % (Auto) 0.5 (0.0-2.0) % Neut # (Auto) 3.8 (1.8-7.7) th/mm3 Lymph # (Auto) 1.1 (1.0-4.8) th/mm3 Davie # (Auto) 0.6 (0.0-0.9) th/mm3 Eos # (Auto) 0.1 (0.0-0.4) th/mm3 Baso # (Auto) 0.0 (0.0-0.2) th/mm3 WBC Differential . Differential Comment . Sodium 132 L (136-145) meq/L Potassium 3.8 (3.5-5.1) meq/L Chloride 98 (98-107) meq/L Carbon Dioxide 24.1 (21.0-32.0) meq/L Anion Gap 10 (5-15) meq/L BUN 12 (7-18) mg/dL Creatinine 0.89 (0.50-1.00) mg/dL Estimated GFR 61 L (>89) mL/min Random Glucose 99 (74-106) mg/dL Calcium 9.1 (8.5-10.1) mg/dL Total Bilirubin 0.6 (0.2-1.0) mg/dL AST 16 (15-37) U/L ALT 16 (10-53) U/L Alkaline Phosphatase 77 (45-117) U/L Troponin I Less than 0.02 L (0.02-0.05) ng/mL Total Protein 7.0 (6.4-8.2) g/dL Albumin 3.6 (3.4-5.0) g/dL Imaging Data Attestation: I personally reviewed and interpreted this imaging study as follows : Radiologist's impression: Chest X-Ray 03/09/18 07:53 CONCLUSION: Negative examination. ECG Data Attestation: I personally reviewed and interpreted this ECG as follows: Interpretation: EKG shows sinus bradycardia rate of 59 bpm. No signs of acute ST elevations or depressions. Discharge Plan Discharge Disposition Patient Disposition: 30 Still Patient Discharge Condition Condition: Stable Discharge Details Anticipated Discharge Date: 03/09/18 Diagnosis: Chest pain Physicians Team ED Provider: Ronna Jovel Primary Care Provider: Ebonie Rinaldi Rxs /Orders / Referrals /Forms Prescriptions: No Action multivitamin [Multiple Vitamins] Tablet 1 tab PO DAILY RF: 0 atorvastatin 40 mg Tablet 40 mg PO DAILY RF: 0 amlodipine [Norvasc] 2.5 mg Tablet 2.5 mg PO DAILY RF: 0 aspirin [Aspirin Low Dose] 81 mg Tablet,Delayed Release (Dr/Ec) 81 mg PO BID RF: 0 calcium carbonate [Calcium 600] 600 mg calcium (1,500 mg) Tablet 600 mg PO DAILY RF: 0 telmisartan-hydrochlorothiazid [Micardis HCT] 80-12.5 mg Tablet 1 tab PO DAILY RF: 0 lansoprazole [Prevacid] 15 mg Capsule,Delayed Release(Dr/Ec) 15 mg PO DAILY RF: 0 metoprolol succinate [Toprol XL] 25 mg Tablet Extended Release 24 Hr 25 mg PO BID RF: 0 coQ10 (ubiquinol) 200 mg Capsule 200 mg PO DAILY RF: 0 Discharge Instructions Patient Printed Instructions: Chest Pain (ED) Status ED Status: With Doctor
--- NOTE | 2018-03-09 08:16 | XR ---
EXAM DATE: 03/09/2018 8:10 AM EDT AGE/SEX: 77 years / Female INDICATIONS: Chest pain for 1 week CLINICAL DATA: This is the patient's initial encounter. Patient reports that signs and symptoms have been present for 1 week and indicates a pain score of 2/10. MEDICAL/SURGICAL HISTORY: . Hypercholesterolemia. Hypertension Myocardial infarction. GERD. . Tonsillectomy. Cardiac cath with stent placement. Bilateral arthroscopic knee surgeries COMPARISON: [facility], CHEST PA & LAT, 11/01/2017. . FINDINGS: A single AP view of the chest demonstrates the lungs to be symmetrically aerated without evidence of mass, infiltrate or effusion. The cardiomediastinal contours are unremarkable. Osseous structures a re intact. CONCLUSION: Negative examination. Electronically signed by: Yury Gallo MD 03/09/2018 8:15 AM EDT
[2018-03-09 08:19] LABS: Baso % (Auto) 0.5 % (0.0-2.0); Eos # (Auto) 0.1 th/mm3 (0.0-0.4); Eos % (Auto) 1.3 % (0.0-4.0); Hematocrit 42.3 % (35.0-46.0); Hemoglobin 14.4 gm/dL (11.6-15.3); Lymph # (Auto) 1.1 th/mm3 (1.0-4.8); Lymph % (Auto) 19.5 % (9.0-44.0); Mean Corpuscular HGB Conc 34.1 % (32.0-36.0); Mean Corpuscular Hemoglobin 31.2 pg (27.0-34.0); Mean Corpuscular Volume 91.4 fL (80.0-100.0); Mean Platelet Volume 7.8 fL (7.0-11.0); Mono # (Auto) 0.6 th/mm3 (0.0-0.9); Mono % (Auto) 10.8 % (0.0-8.0); Neut # (Auto) 3.8 th/mm3 (1.8-7.7); Neut % (Auto) 67.9 % (16.0-70.0); Platelet Count 252 th/mm3 (150-450); Red Blood Count 4.63 mil/mm3 (4.00-5.30); Red Cell Distribution Width 13.5 % (11.6-17.2); White Blood Count 5.6 th/mm3 (4.0-11.0)
[2018-03-09 08:26] LABS: Chloride 98 meq/L (98-107); Potassium 3.8 meq/L (3.5-5.1); Sodium 132 meq/L (136-145)
[2018-03-09 08:29] LABS: Calcium 9.1 mg/dL (8.5-10.1)
[2018-03-09 08:30] LABS: Albumin 3.6 g/dL (3.4-5.0); Anion Gap 10 meq/L (5-15); Blood Urea Nitrogen 12 mg/dL (7-18); Carbon Dioxide 24.1 meq/L (21.0-32.0); Glucose,Random 99 mg/dL (74-106)
[2018-03-09 08:33] LABS: Alanine Aminotransferase 16 U/L (10-53); Aspartate Aminotransferase 16 U/L (15-37); Glomerular Filtration Rate 61 mL/min (>89)
[2018-03-09 08:36] LABS: Alkaline Phosphatase 77 U/L (45-117)
[2018-03-09] MEDS ORDERED: Acetaminophen 500 MG Tablet PO PRN (09:30)
[2018-03-09] MEDS ORDERED: Morphine Inj 4 MG/ML Vial IV.PUSH PRN (09:30)
[2018-03-09 09:32] VITALS: BP 133/70; PULSE 58
--- NOTE | 2018-03-09 10:22 | P.HPIM ---
History of Present Illness Service: [facility] Primary Care Physician: Ebonie Rinaldi MD Chief Complaint: chest pain History of Present Illness: Mrs. Aguilar is a 77 yo F patient of Dr. Palomo with H CAD s/p stenting several years prior, HTN, hyperlipidemia who presented to [facility] with chest pain. Patient reports that she began to have chest pain at ~230 AM which she described as chest tightness and pressure similar to that she previously had when having ACS which required stenting in ~2012. She states that it radiates to her R shoulder and to her R jaw. Patient states that it has been stable since it started and has not improved since arrival in ED. Patient does not report associated shortness of breath, sweating, or nausea/vomiting. No recent bowel or urinary abnormalities. No recent headache or numbness/tingling/ weakness reported. Patient reprots that she also has been having neck and back pain for the past week; she initially assumed that this was due to back pain (for which she has recently been getting spinal injections for osteoarthritis/degenerative joints with Dr. Kwon) but now thought that may be due to cardiac disease. Patient has not noticed any recent exertional shortness of breath or chest pain. Patient reports a reassuring exercise stress test ~1 year prior. Per EMR review- Catheterization by Dr. Palomo 02/2013; patient found to have mild LV dysfunction and single vessel disease. She was given drug eluding stent Exercise stress test 07/[address] Palomares Interval: Initial troponin and EKG in ED reassuring. Patient admitted to chest pain center for further evaluation - Diagnosis (1) CAD (coronary artery disease) (2) HTN (hypertension) (3) Chest pain Review of Systems Constitutional: Denies chills, Denies fatigue, Denies fever(s) Eyes: Denies blurry vision, Denies loss of vision Ears, Nose, Mouth, and Throat: Denies sinus pain, Denies sinus pressure Cardiovascular: Reports chest pain, Denies shortness of breath Respiratory: Denies cough, Denies shortness of breath Gastrointestinal: Denies loose stools, Denies vomiting Genitourinary: Denies urinary incontinence, Denies urinary urgency Musculoskeletal: Reports back pain (chronic), Reports neck pain Skin/Breast: Denies lesions, Denies new lesions Neurologic: Denies numbness, Denies tingling/numbness/burning sensations Psychiatric: Denies anxiety, Denies depression Endocrine: Denies excessive sweating, Denies flushing PMFSH - History History Provided By: Patient - Medical History Medical History: Medical History (Last Updated 03/09/18 @ 15:07 by Bakari Gutierrez MD) Elevated cholesterol GERD (gastroesophageal reflux disease) Heart attack Hypertension Osteoarthritis - Surgical History Surgical History: Surgical History (Last Updated 03/09/18 @ 15:04 by Bakari Gutierrez MD) Status post epidural steroid injection Stented coronary artery - Family History Family History: Family History (Last Updated 03/09/18 @ 15:07 by Bakari Gutierrez MD) Father CVA (cerebral vascular accident) Father Heart disease Mother Heart disease - Tobacco History Second Hand Smoke Exposure: No Smoking Status: Never smoker - Alcohol History How Often Do You Have a Drink Containing Alcohol: Monthly or less - Substance Use History Substance History: No History of Abuse - Travel History Recent Travel in the [facility] Within the Last 8 Weeks: No Recent Travel Out of the Country Within the Last 8 Weeks: No - Immunization History Tetanus Immunization: Unsure Hx Influenza Vaccine This Season: Yes Medications and Allergies Active Medications: Active Medications Acetaminophen (Tylenol) 500 mg PO Q4H PRN PRN Reason: HEADACHE Hydrocodone Bitart/Acetaminophen ([place] 7.5/325) 1 tab PO Q4H PRN PRN Reason: PAIN SCALE 1 TO 7 Aspirin (Aspirin) 325 mg PO DAILY SHAHID Morphine Sulfate (Morphine Inj) 2 mg IV.PUSH Q4H PRN PRN Reason: PAIN SCALE 8 TO 10 Nitroglycerin (Nitrostat Sl) 0.4 mg SL Q5M PRN PRN Reason: CHEST PAIN Ondansetron HCl (Zofran Inj) 4 mg IV.PUSH Q6H PRN PRN Reason: NAUSEA Sodium Chloride (Ns Flush) 2 ml IV.FLUSH PRN PRN PRN Reason: FLUSH AFTER USING IV ACCESS Sodium Chloride (Ns Flush) 2 ml IV.FLUSH BID SHAHID Allergies Allergy/AdvReac Type Severity Reaction Status Date / Time penicillin G Allergy Intermediate hives Verified 03/09/18 07:49 Home Medications Medication Instructions Recorded Confirmed Type amlodipine [Norvasc] 2.5 mg PO DAILY 02/18/18 03/09/18 History aspirin [Aspirin Low Dose] 81 mg PO BID 02/18/18 03/09/18 History atorvastatin 40 mg PO DAILY 02/18/18 03/09/18 History calcium carbonate [Calcium 600] 600 mg PO DAILY 02/18/18 03/09/18 History coQ10 (ubiquinol) 200 mg PO DAILY 02/18/18 03/09/18 History lansoprazole [Prevacid] 15 mg PO DAILY 02/18/18 03/09/18 History metoprolol succinate [Toprol XL] 25 mg PO BID 02/18/18 03/09/18 History multivitamin [Multiple Vitamins] 1 tab PO DAILY 02/18/18 03/09/18 History telmisartan-hydrochlorothiazid 1 tab PO DAILY 02/18/18 03/09/18 History [Micardis HCT] Exam Vital signs: Vital Signs 03/09/18 07:46 03/09/18 08:15 03/09/18 08:22 Temperature 97.9 F Pulse Rate 57 L 57 L Respiratory Rate 16 16 Blood Pressure 140/78 Pulse Oximetry 96 96 96 03/09/18 08:25 03/09/18 08:28 03/09/18 09:30 Temperature Pulse Rate 57 L 58 L Respiratory Rate 16 16 16 Blood Pressure 127/74 133/70 Pulse Oximetry 96 96 Intake & Output 03/08/18 03/09/18 03/09/18 18:59 06:59 18:59 Weight 82 kg Narrative: General: No acute distress Eyes: EOM grossly I HENT: Normal mucus membranes Skin: No visible lesions Neck: No appreciated thyromegaly or lymphadenopathy CV: Regular rate and rhythm; normal perfusion Chest: no pain to sternal palp per patient. No pain with deep breaths Resp: CTAB; normal rate Abdomen/Back: Normal BS. Nontender to palpation Ext: Grossly normal ROM and motor function Neuro: Awake/alert. Grossly normal CN. Grossly normal peripheral motor/sensory function Results - Labs CBC & Chem 7: 03/09/18 08:15 03/09/18 08:15 Labs: Short CBC 03/09/18 Range/Units 08:15 WBC 5.6 (4.0-11.0) th/mm3 Hgb 14.4 (11.6-15.3) gm/dL Hct 42.3 (35.0-46.0) % Plt Count 252 (150-450) th/mm3 BMP 03/09/18 08:15 Sodium 132 L Potassium 3.8 Chloride 98 Carbon Dioxide 24.1 BUN 12 Creatinine 0.89 Calcium 9.1 Cardiac Enzymes 03/09/18 Range/Units 08:15 Troponin I Less than 0.02 L (0.02-0.05) ng/mL Liver Function 03/09/18 Range/Units 08:15 Total Bilirubin 0.6 (0.2-1.0) mg/dL AST 16 (15-37) U/L ALT 16 (10-53) U/L Alkaline Phosphatase 77 (45-117) U/L Albumin 3.6 (3.4-5.0) g/dL - Imaging Impressions Chest X-Ray 03/09/18 07:53 CONCLUSION: Negative examination. Caprini VTE Risk Assessment Caprini VTE Risk Assessment: Moderate/High Risk (score >= 2) Caprini Risk Assessment Model: Point Value = 1 Point Value = 2 Point Value = 3 Point Value = 5 Age 41-60 Minor surgery BMI > 25 kg/m2 Swollen legs Varicose veins or History of unexplained or recurrent spontaneous Oral contraceptives or hormone replacement Sepsis (< 1 month) Serious lung disease, including pneumonia (< 1 month) Abnormal pulmonary function Acute myocardial infarction Congestive heart failure (< 1 month) History of inflammatory bowel disease Medical patient at bed rest Age 61-74 Arthroscopic surgery Major open surgery (> 45 min) Laparoscopic surgery (> 45 min) Malignancy Confined to bed (> 72 hours) Immobilizing plaster cast Central venous access Age >= 75 History of VTE Family history of VTE Factor V Leiden Prothrombin [id number] Lupus anticoagulant Anticardiolipin antibodies Elevated serum homocysteine Heparin-induced thrombocytopenia Other congenital or acquired thrombophilia Stroke (< 1 month) Elective arthroplasty Hip, pelvis, or leg fracture Acute spinal cord injury (< 1 month) Prophylaxis Regimen: Total Risk Factor Score Risk Level Prophylaxis Regimen 0-1 Low Early ambulation 2 Moderate Order ONE of the following: *Sequential Compression Device (SCD) *Heparin 5000 units SQ BID 3-4 Higher Order ONE of the following medications: *Heparin 5000 units SQ TID *Enoxaparin/Lovenox 40 mg SQ daily (WT < 150 kg, CrCl > 30 mL/min) *Enoxaparin/Lovenox 30 mg SQ daily (WT < 150 kg, CrCl > 10-29 mL/min) *Enoxaparin/Lovenox 30 mg SQ BID (WT < 150 kg, CrCl > 30 mL/min) AND/OR *Sequential Compression Device (SCD) 5 or more Highest Order ONE of the following medications: *Heparin 5000 units SQ TID (Preferred with Epidurals) *Enoxaparin/Lovenox 40 mg SQ daily (WT < 150 kg, CrCl > 30 mL/min) *Enoxaparin/Lovenox 30 mg SQ daily (WT < 150 kg, CrCl > 10-29 mL/min) *Enoxaparin/Lovenox 30 mg SQ BID (WT < 150 kg, CrCl > 30 mL/min) AND *Sequential Compression Device (SCD) Assessment and Plan - Assessment (1) CAD (coronary artery disease) Code(s): I25.10 - Atherosclerotic heart disease of [place] coronary artery without angina pectoris Status: Acute (2) HTN (hypertension) Code(s): I10 - Essential (primary) hypertension Status: Acute (3) Chest pain Code(s): R07.9 - Chest pain, unspecified Status: Acute - Plan Mrs. Aguilar is a 77 yo F: Cardiovascular Chest pain Impression: Chest pain since 230AM; recent neck pain for ~1 week; has been getting spinal injections. Risk factors of prior CAD (stenting in 2012), HTN, hyperlipidemia. -ACS rule out -initial EKG, troponin reassuring -Will check additional troponin/EKG -Will monitor on telemetry -Morphine and nitroglycerin PRN chest paijn -O2 if needed -s/p ASA -Continue home ASA, statin, BB, HTN control -Will get chemical stress test based on EKG rule-out DVT PPX -SCD's Code Status: Full code Addendum Remainder of ACS rule-out reassuring Nuclear stress test low risk -Patient reassured about lack of cardiac findings; she will follow-up with Dr. Kwon for further back pain control. Will plan to discharge home to f/u with Dr. Palomo and PCP
--- NOTE | 2018-03-09 11:52 | ECG ---
Date Performed: 03/09/2018 Time Performed: 11:06:20 PTAGE: 77 years EKG: SINUS BRADYCARDIA BORDERLINE ECG PREVIOUS TRACING : 03/09/2018 07.36 DOCTOR: Sofiya Major Interpretating Date/Time 03/09/2018 11:51:27
--- NOTE | 2018-03-09 11:56 | ECG ---
Date Performed: 03/09/2018 Time Performed: 07:36:53 PTAGE: 77 years EKG: SINUS BRADYCARDIA BORDERLINE ECG INTERPRETATION BASED ON A DEFAULT AGE OF 39 YEARS PREVIOUS TRACING : 11/01/2017 15.36 DOCTOR: Sofiya Major Interpretating Date/Time 03/09/2018 11:55:29
[2018-03-09 12:10] LABS: Creatine Kinase 58 U/L (26-192)
[2018-03-09] MEDS ORDERED: Regadenoson Inj 0.4 MG/5 ML Syringe IV.PUSH ONE (13:48)
--- NOTE | 2018-03-09 14:48 | NM ---
EXAM DATE: 03/09/2018 2:40 PM EDT AGE/SEX: 77 years / Female INDICATIONS:Angina. Coronary artery disease Substernal chest pain. CLINICAL DATA: This is the patient's initial encounter. Patient reports that signs and symptoms have been present for 1 day and indicates a pain score of 5/10. MEDICAL/SURGICAL HISTORY: Hypertension. Gastroesophageal reflux disease. Coronary artery stent . COMPARISON: [facility], MYOCARDIAL PERF PHARM SPECT, 08/23/2015. . DOSE: 8.5 mCi Tc 99m Myoview at rest 25.4 mCi [id number] at stress 0.4 mg Lexiscan STRESS SYMPTOMS: Dyspnea, headache and chest pressure. EJECTION FRACTION: >70 % TECHNIQUE: The patient underwent pharmacologic stress with infusion of prescribed dose. Continuous ECG tracing was monitored during stress. Gated SPECT imaging was performed after stress and conventi onal SPECT imaging was performed at rest. The examination was performed on a SPECT/CT scanner, both attenuation and non-corrected datasets were reviewed. FINDINGS: Distribution: The maximum perfused segment at stress is in the anterior wall. Perfusion Study: The pattern of perfusion at stress is within normal limits. Gated Study: There are intact wall motion and wall thickening without hypokinetic or dyskinetic segm ents. The ejection fraction is calculated at >70%. RISK CATEGORY: Low (<1% Annual Motality Rate) CONCLUSION: 1. No reversible defects observed to suggest acute ischemia. Electronically signed by: Jmi Bruce MD 03/09/2018 2:47 PM EDT
[2018-03-10] MEDS ORDERED: Aspirin 325 MG Tablet PO SCH (09:00)
[2018-03-10] MEDS ORDERED: amLODIPine 5 MG Tablet PO SCH (09:00)
[2018-03-10] MEDS ORDERED: Pantoprazole Sodium 20 MG DR Tablet PO SCH (09:00)
[2018-03-10] MEDS ORDERED: Calcium Carbonate 500 MG Tablet PO SCH (09:00)
[2018-03-10] MEDS ORDERED: Non-Formulary Drug (Coq10 (Ubiquinol) [Coq10 (Ubiquinol)] 200 MG) PO SCH (09:00)
--- NOTE | 2018-03-10 14:12 | TR ---
Date Performed: 03/09/2018 Time Performed: 14:05:33 DOCTOR: Clyde Mcintyre DRUG LIST: CLINICAL HISTORY: CHEST PAIN REASON FOR TEST: Chest pain REASON FOR ENDING: OBSERVATION: CONCLUSION: COMMENTS: Lexiscan stress test was performed under standard four minute protocol. Radionuclide was injected one minute prior to ending the test. No electrocardiographic abormalities were present t o suggest ischemia. Nuclear imaging and interpretation are pending.
== END 2018-03-09 17:38 | disposition home or self-care (01) ==
LOC: PHEDA 07:31 → PHED 07:31 → PH3 10:04
PROVIDERS: ADMIT Family Medicine; ATTEND Family Medicine